=== PATIENT | female | born 1960 | race Caucasian/White ===

== ENCOUNTER 2024-06-05 07:39 | Outpatient (AMB) | payer OTHER, SELFPAY ==
--- OUTSIDE RECORDS SUMMARY | 2024-06-05 07:44 | XMS_ITS | Clinical Summary ---
Author Organization [address] [facility] Address [address] [place] [address] Phone Care Team Providers Care Instrument Specialist Name Role Phone Katalina Parker MD Primary Care Provider [phone] Allergies Active Allergy Reactions Criticality Noted Date Comments Penicillins 11/26/2019 Other Reaction(s): Rash/Dermatitis Medications albuterol 2.5 mg /3 mL (0.083 %) nebulizer solution Take 1 Vial by nebulization every 4 hours as needed for Wheezing or Shortness of Breath. 4 Active amLODIPine (NORVASC) 10 mg tablet Take 1 Tablet by mouth daily. 4 Active aspirin 81 mg EC tablet Take 1 Tablet by mouth daily for 360 days. 4 10/27/19 25 Active atorvastatin (LIPITOR) 20 mg tablet Take 1 Tablet by mouth daily for 360 days. 4 11/22/19 25 Active cholecalciferol (VITAMIN D-3) 25 mcg (1,000 unit) tablet Take 1 Tablet by mouth daily. 4 Active clotrimazole (LOTRIMIN) 1 % cream Apply to skin and toenails daily for 12 weeks 4 Active diclofenac (VOLTAREN) 1 % topical gel Apply 4 g topically 2 times daily. 4 Active DULoxetine (CYMBALTA) [address] capsule Take 1 Capsule by mouth daily. 4 Active fluticasone propion-salmete roL (ADVAIR HFA) 230-21 mcg/actuation inhaler Inhale 2 Puffs into the lungs 2 times daily. 4 Active fluticasone propionate (FLONASE) 50 mcg/actuation nasal spray 2 Sprays by Nasal route daily. 4 Active gabapentin (NEURONTIN) 100 mg capsule Take 1 tablet up to 2 times daily for pain. 4 Active glipiZIDE (GLUCOTROL XL) 5 mg 24 hr tablet Take 1 Tablet by mouth daily. 4 Active cyclobenzaprine (FLEXERIL) 5 mg tablet Take 1 Tablet by mouth 2 times daily as needed for Muscle spasms. 3 Active FREESTYLE LANCETS MISC 1 Each by Does not apply route 2 times daily. 3 Active hydroCHLOROthia zide (HYDRODIURIL) 25 mg tablet Take 1 Tablet by mouth daily. 4 Active losartan (COZAAR) 100 mg tablet Take 1 Tablet by mouth daily for 180 days. 4 Active meclizine (ANTIVERT) 25 mg tablet Take 1 Tablet by mouth 2 times daily as needed for Other. 4 Active metFORMIN XR (GLUCOPHAGE-XR) 500 mg 24 hr tablet Take 1 tablet by mouth twice a day 4 Active montelukast (SINGULAIR) 10 mg tablet Take 1 Tablet by mouth at bedtime. 4 Active naproxen (NAPROSYN) 250 mg tablet Take 1 Tablet by mouth 2 times daily (with meals) for 360 days. 4 10/28/19 25 Active senna-docusate (PERICOLACE) 8.6-50 mg per tablet Take 1 Tablet by mouth daily. 4 Active sodium chloride (AYR) 0.65 % nasal drops 1 [place] by Nasal route 4 times daily as needed for Congestion. 3 Active magnesium oxide (MAG-OX) 400 mg magnesium tablet Take 1 Tablet by mouth daily. 4 Active blood sugar diagnostic (FreeStyle Lite Strips) test strip 1 Strip by In Vitro route 2 times daily. 4 Active blood-glucose meter kit 1 Device by Does not apply route daily. 3 Active Active Problems Problem Noted Date Diagnosed Date Diabetes 02/22/2021 Peripheral arterial disease 07/16/2020 Overview (01/30/2024): Per [facility] results 05/2020: L>R, awaiting appt to discuss and make recommendations Anxiety 06/16/2020 Degenerative disc disease, lumbar 11/28/2019 Osteoarthritis 11/28/2019 Asthma 11/26/2019 Depression with anxiety 11/26/2019 Hypertension 11/26/2019 MELINDA (obstructive sleep apnea) 11/26/2019 Overview (01/30/2024): [facility] Home Sleep Apnea Test: Date 02/26/2020; Wt 238#; BMI 44; CLAUDE (AHI) 59, AI 47; HI 12; Unclassified apneas 0; Obstructive apneas 355; Central apneas 0; Mixed apneas 0; hypopneas 88; average oxygen saturation 94% (lowest 84% without saturations <88% for 5% or more of study) - Obstructive Sleep Apnea - severe; mostly obstructive apneas with hypopneas; without sleep related hypoventilation by 2019 home sleep apnea test. Immunizations Name Administration Dates Next Due Influenza Quadravalent, MDCK , 0.5ml, preservative free (Flucelvax) 6mo and older 11/28/2019 Pfizer SARS-CoV-2 COVID-19, mRNA, LNP-S, preservative free 12/11/2020,11/20/2020 Surgical History Surgery Date Site/Laterality Comments COLONOSCOPY 2019 PROCEDURE: HISTORICAL COLONOSCOPY; COMMENT: nml OTHER SURGICAL HISTORY PROCEDURE: HISTORICAL SUPRACERVICAL HYSTERECTOMY W/O BSO; COMMENT: left oophorectomy Medical History Medical History Date Comments Hypertension 11/26/2019 DX:Hypertension Asthma 11/26/2019 DX:Asthma MELINDA (obstructive sleep apnea) 11/26/2019 DX :MELINDA (obstructive sleep apnea) Depression with anxiety 11/26/2019 DX:Depre ssion with anxiety Family History Medical History Relation Name Comments Other: heart disease Brother Diabetes Father Hypertension Father Other cancer Father bones Alzheimer's disease Mother Hypertension Mother CABG Sister Diabetes Sister Breast cancer Neg Hx Colon cancer Neg Hx Ovarian cancer Neg Hx Relation Name Status Comments Brother Alive Father Mother Sister Alive Social History Tobacco Use Types Packs/Day Years Used Date Smoking Tobacco: Never Smokeless Tobacco: Never Alcohol Use Standard Drinks/Week Comments No 0 (1 standard drink = 0.6 oz pur e alcohol) Comments Unknown Sex and Gender Information Value Date Recorded Sex Assigned at Female 05/30/2024 4:55 PM EST Legal Sex Female 12:18 AM EST Gender Identity Female 05/30/2024 4:55 PM EST Sexual Orientation Straight 05/30/2024 4: 55 PM EST Obstetrics History Last Filed Vital Signs Vital Sign Reading Time Taken Comments Blood Pressure 139/89 11/27/2023 3:40 PM EDT Pulse 72 11/27/2023 3:40 PM EDT Temperature - - Respiratory Rate - - Oxygen Saturation - - Inhaled Oxygen Concentration - - Weight 105 kg (231 lb 6.4 oz) 11/27/2023 3:40 PM EDT Height 157.5 cm (5' 2 ) 11/27/2023 3:40 PM EDT Body Mass Index 42.32 11/27/2023 3:40 PM EDT Plan of Treatment Health Maintenance Due Date Last Done Comments Breast Cancer Screening 1960 Diabetes: Annual Foot Exam 06/16/1969 DTaP,Tdap,and Td Vaccines (1 - Tdap) 06/16/1978 Pneumococcal Vaccine: 50+ Years (1 of 2 - PCV) 06/16/1978 Pneumococcal Vaccine: Pediatrics (0 to 5 Years) and At-Risk Patients (6 to 64 Years) (1 of 2 - PCV) 06/16/1978 Zoster Vaccines (1 of 2) 06/16/2009 RSV Immunization Patients 60 + Years Old (1 - Risk 60-74 years 1-dose series) 2019 HIV Screening 03/04/2022 Hepatitis C Screening 03/04/2022 Medicare Annual Wellness Visit 03/04/2022 Social Influencers of Health Screening 03/04/2022 Diabetes: Annual Urine Albumin-Creatinine Ratio (uACR) 11/01/2023 10/31/2022 COVID-19 Vaccine ( - 2023-2 5 season) 2023 12/11/2020, 11/20/2020 Influenza Vaccine (#1) 2023 11/28/2019 Diabetes: Annual Retina Eye Exam 09/10/2024 09/11/2023 Diabetes: Blood Sugar Contro l Test (HGBA1C) 11/18/2024 05/21/2024, 06/25/2023 Depression Screening 11/26/2024 11/27/2023 Diabetes: Annual GFR (Glomerular Filtration Rate) 05/21/2025 05/21/2024, 06/25/2023 Hypertension/CHF/CAD Annual BMP Blood Test 05/21/2025 05/21/2024, 06/25/2023 Cervical Cancer Screening: HPV 06/21/2025 06/21/2020 Cholesterol Screening (Lipid Panel) 05/21/2029 05/21/2024, 06/25/2023 Colorectal Cancer Screening: Colonoscopy 01/26/2030 01/27/2020 HIB Vaccines Aged Out No longer eligi ble based on patient's age to complete this topic HPV Vaccines Aged Out No longer eligi ble based on patient's age to complete this topic Hepatitis A Vaccines Aged Out No long er eligible based on patient's age to complete this topic Hepatitis B Vaccines Aged Out No long er eligible based on patient's age to complete this topic IPV Vaccines Aged Out No longer eligi ble based on patient's age to complete this topic MMR Vaccines Aged Out No longer eligi ble based on patient's age to complete this topic Meningococcal ACWY Vaccine Aged Out N o longer eligible based on patient's age to complete this topic Meningococcal B Vacine Aged Out No lo nger eligible based on patient's age to complete this topic RSV Immunization Patients Under 20 months Aged Out No longer eligible b ased on patient's age to complete this topic Varicella Vaccines Aged Out No longer eligible based on patient's age to complete this topic Procedures Procedure Name Priority Date/Time Associated Diagnosis Comments COMPREHENSIVE METABOLIC PANEL Routine 05/21/2024 8:49 AM EST Hyperlipemia Essential hypertension, benign HEMOGLOBIN A1C Routine 05/21/2024 8:49 AM EST Hyperlipemia Essential hypertension, benign LIPID PANEL WITH REFLEX TO DIRECT LDL Routine 05/21/2024 8:49 AM EST Hyperlipemia Essential hypertension, benign DEPRESSION SCREENING Routine 11/27/2023 DIABETES EYE EXAM Routine 09/11/2023 URINE ALBUMIN CREATININE RATIO Routine 10/31/2022 HM HPV Routine 06/21/2020 COLONOSCOPY Routine 01/27/2020 from Last 3 Months or Most Recently Relevant to Health Maintenance Results * (ABNORMAL) Lipid panel with reflex to direct LDL (05/21/2024 8:49 AM EST) Cholesterol 207(H) 0 - 200 mg/dL LAB CHEMISTRY METHOD 05/21/2024 10:02 AM EST [facility] Triglycerides 171(H) 0 - 150 mg/dL LAB CHEMISTRY METHOD 05/21/2024 10:02 AM [facility] HDL 41 >=40 mg/dL LAB CHEMISTRY METHOD 05/21/2024 10:02 AM [facility] LDL Calculated 132(H) 0 - 100 mg/dL LAB CHEMISTRY METHOD 05/21/2024 10:02 AM EST [facility] VLDL Cholesterol Gino 34.2 mg/dL LAB CHEMISTRY METHOD 05/21/2024 10:02 AM [facility] Non HDL Chol. (LDL+VLDL) 166(H) <145 mg/dL LAB CHEMISTRY METHOD 05/21/2024 10:02 AM [facility] Chol/HDL Ratio 5.0(H) 0.0 - 4.4 LAB CHEMISTRY METHOD 05/21/2024 10:02 AM EST [facility] Blood Venous blood specimen / Unknown Venipuncture / Unknown 05/21/2024 8:49 AM EST 05/21/2024 9:09 AM EST us Katalina Parker MD LAB BLOOD ORDERABLES Final Res ult [facility] [address] [place] [address], * Hemoglobin A1c (05/21/2024 8:49 AM EST) Pathologist [facility] Hemoglobin A1C 6.0 <6.5 % LAB CHEMISTRY METHOD 05/21/2024 1:34 PM [facility] Mean Bld Glu Estim. 126 mg/dL LAB CHEMISTRY METHOD 05/21/2024 1:34 PM [facility] Blood Venous blood specimen / Unknown Venipuncture / Unknown 05/21/2024 8:49 AM EST 05/21/2024 9:10 AM EST us Katalina Parker MD LAB BLOOD ORDERABLES Final Res ult [facility] [address] [place] [address], [place] [phone] * (ABNORMAL) Comprehensive metabolic panel (05/21/2024 8:49 AM EST) [facility] Sodium 139 133 - 145 mmol/L LAB CHEMISTRY METHOD 05/21/2024 10:02 AM [facility] Potassium 4.9 3.5 - 5.5 mmol/L LAB CHEMISTRY METHOD 05/21/2024 10:02 AM [facility] Chloride 107 96 - 110 mmol/L LAB CHEMISTRY METHOD 05/21/2024 10:02 AM [facility] CO2 25 21 - 32 mmol/L LAB CHEMISTRY METHOD 05/21/2024 10:02 AM [facility] Anion Gap 7 3 - 11 LAB CHEMISTRY METHOD 05/21/2024 10:02 AM [facility] Glucose 102(H) 70 - 100 mg/dL LAB CHEMISTRY METHOD 05/21/2024 10:02 AM [facility] BUN 25 5 - 25 mg/dL LAB CHEMISTRY METHOD 05/21/2024 10:02 AM [facility] Creatinine 0.93 0.50 - 1.10 mg/dL LAB CHEMISTRY METHOD 05/21/2024 10:02 AM [facility] eGFR 69 >=60 mL/min/1. 73m2 LAB CHEMISTRY METHOD 05/21/2024 10:02 AM [facility] Comment:Calculation based on the??Chronic Kidney Disease Epidemiology Collaboration (CKD-EPI) equation refit??without adjustment for race. BUN/Creatinine Ratio 26.9 LAB CHEMISTRY METHOD 05/21/2024 10:02 AM [facility] Calcium 9.8 8.5 - 10.5 mg/dL LAB CHEMISTRY METHOD 05/21/2024 10:02 AM [facility] AST (SGOT) 20 10 - 42 unit/L LAB CHEMISTRY METHOD 05/21/2024 10:02 AM [facility] ALT (SGPT) 22 10 - 60 unit/L LAB CHEMISTRY METHOD 05/21/2024 10:02 AM [facility] Alkaline Phosphatase 116 42 - 121 unit/L LAB CHEMISTRY METHOD 05/21/2024 10:02 AM [facility] Total Protein 7.2 6.0 - 8.0 g/dL LAB CHEMISTRY METHOD 05/21/2024 10:02 AM [facility] Albumin 3.7 3.2 - 5.0 g/dL LAB CHEMISTRY METHOD 05/21/2024 10:02 AM [facility] Total Bilirubin 0.4 0.0 - 1.4 mg/dL LAB CHEMISTRY METHOD 05/21/2024 10:02 AM [facility] Blood Venous blood specimen / Unknown Venipuncture / Unknown 05/21/2024 8:49 AM EST 05/21/2024 9:09 AM EST us Katalina Parker MD LAB BLOOD ORDERABLES Final Res ult [facility] [address] [place] [address], * Depression Screening (11/27/2023) Pathologist [facility] Depression Screening Abstracted [facility] [place] [facility] Provider HEALTH MAINTENANCE Final Result * Diabetes Eye Exam (09/11/2023) [facility] Diabetes: Annual Retina Eye Exam Abstracted Result [facility] Provider HEALTH MAINTENANCE Final Result * Urine Albumin Creatinine Ratio (10/31/2022) [facility] Urine Albumin Creatinine Ratio Abstracted Result [facility] Provider HEALTH MAINTENANCE Final Result * Cervical Cancer Screening: HPV (06/21/2020) [facility] Cervical Cancer Screening: HPV Negative, Abstracted Result [facility] Provider HEALTH MAINTENANCE Final Result * Colonoscopy (01/27/2020) [facility] Colonoscopy No Interpretation , Abstracted Anatomical Region Laterality Modality Other Result [facility] Provider HEALTH MAINTENANCE Final Result from Last 3 Months or Most Recently Relevant to Health Maintenance Insurance [employer] Member Subscriber Plan / Payer (Ef fective 2022-Present) Name:Elke Rivers Relation to Subscriber:Self Name:Elke Rivers Payer ID:[id number] Group ID:[id number] Type:Not on file Address: [facility] [address] [address] Care Teams Instrument Specialist Relationship Specialty Start Date End Date Katalina Parker MD [address] [address] PCP - General Internal Medicine 10/06/20
[2024-06-05 07:46] VITALS: BP 130/80; BMI 45.9
--- NOTE | 2024-06-05 07:46 | A.OFFPC_ITS ---
Vital Signs 06/05/24 07:46 Height 5 ft Weight 235 lb BMI 45.9 BP 130/80 Blood Pressure Location Lt brachial Position Sitting Intake Visit Reasons: New patient Intake Note: New patient establishing care Client Associate Required: Yes Client Associate Language: Electric Refrigerator Servicer Name: Nena Maher MD Information Interpreted: non-clinical & clinical Accompanied by: Son Allergies Penicillins Allergy (Severe, Verified 06/05/24 08:00) rash, eye swelling Medication List - Last Reconciled 06/05/24 by Nena Maher MD amlodipine mg PO DAILY cholecalciferol (vitamin D3) PO DAILY duloxetine mg PO DAILY duloxetine mg PO gabapentin mg PO hydrochlorothiazide mg PO DAILY hydroxyzine HCl mg PO 3XD losartan mg PO DAILY magnesium oxide mg PO DAILY meclizine mg PO metformin ER mg PO Tobacco use date assessed: 06/05/24 Fall risk assessment: No Falls in past year Last assessed Fall Risk: 06/05/24 Dental Screening Dental Screen Date: 06/05/24 Did you have a dental visit in the last 12 months?: No Did you have a dental problem in the last 6 months where you did not have access to dental care?: No Was dental information given to patient?: Patient has dentist HPI HPI Comments History of Present Illness Details The patient is a 63-year-old female presenting with a follow-up for management of Type 2 Diabetes Mellitus and blood pressure monitoring. Her medication regimen includes metformin, with no current use of insulin, signifying oral hypoglycemics for control. She also notes a history of depression, maintained with fluoxetine. She also has anxiety and follows with counseling and psychiatry. Blood pressure well controlled. She complains of occasional vertigo and will be referred to vestibular therapy. No tinnitus. Neuropathy stable with gabapentin. She is morbidly obese with a BMI of 45.9 and will be referred to sales operations consultant. On vitamin-D supplements for her low vitamin- D. The patient uses CPAP therapy for diagnosed obstructive sleep apnea. Clinically, she reports issues with degenerative disc disease and scoliosis, causing notable pain and difficulty walking. Vertigo episodes, associated with positional changes, are reported and partially managed with meclizine. Past surgical history involves a hysterectomy due to substantial bleeding episodes, critically affecting her hemoglobin levels in the past. Her history of cholesterol irregularities and ongoing arthritis is notable. Recent imaging and testing include a mammography and a colonoscopy, the latter is due in 2029. Bone health monitoring points to osteo-related assessment performed over two years ago. These collective conditions highlight the chronicity and complexity of her medical needs. [facility] Surgical History History of hysterectomy Family History Father Multiple myeloma Diabetes mellitus Mother Essential hypertension Alzheimers disease Social History Housing: Apartment Alcohol intake: never Patient Tobacco Use Status: Never used Tobacco e-Cigarette/Vaping Use: Never Used Second Hand Smoke Exposure: No service: No Current occupational status: disabled Cognitive needs: Yes Hearing needs: No Vision needs: Yes Questionnaire PHQ-9 Over the last 2 weeks, how often have you been bothered by any of the following problems? 1. Little interest or pleasure in doing things: several days 2. Feeling down, depressed, or hopeless: several days 3. Trouble falling or staying asleep, or sleeping too much: several days 4. Feeling tired or having little energy: several days 5. Poor appetite or overeating: several days 6. Feeling bad about yourself - or that you are a failure or have let yourself or your family down: not at all 7. Trouble concentrating on things, such as reading the newspaper or watching television: not at all 8. Moving or speaking so slowly that other people could have noticed. Or the opposite - being so fidgety or restless that you have been moving around a lot more than usual: not at all 9. Thoughts that you would be better off or of hurting yourself in some way: not at all Total score: 5 Depression Screening Interpretation: Positive Depression Screening Follow-up: Existing condition, In treatment, Community Mental Health Worker F/U and Follow- up Visit Requested Depression Screening Done: Yes 50925 - PHQ-9 Billing: Yes Source: Developed by Drs. Kirill Sin, Kristyn Hinton, Renzo Jennings and colleagues, with an educational jasvir from [employer] Thrive Questionnaire Date Thrive assessed: 06/05/24 I am a: Patient What is your living situation today?: I have a steady place to live Within the past 12 months, did the food you bought not last and you didn't have the money to get more?: Never true Within the past 12 months, did you worry whether your food would run out before you got money to buy more?: Never true Do you have trouble paying for medicines?: No Do you have trouble getting transportation to medical appointments?: No Do you have trouble paying your heating and electricity bill?: No Do you have trouble taking care of your child, family member or friend?: No Do you have trouble with day-to-day activities such as bathing, preparing meals, shopping, managing finances, etc.?: No Are you currently unemployed and looking for a job?: No Are you interested in more education?: No Please select the resources that you would like help with: None Currently or been in a relationship where the following occur: No concerns rep orted THRIVE Score: 0 AUDIT C Alcohol Use Questionnaire (AUDIT-C) 1. How often do you have a drink containing alcohol?: Never Total Score: 0 Score Reviewed/Action Taken: No JOSHUA-7 AMB Questionnaire JOSHUA-7 Date JOSHUA - 7 assessed: 06/05/24 Feeling nervous, anxious, or on edge: 1 = Several days Not being able to stop or control worryin = Not at all Worrying too much about different things: 1 = Several days Trouble relaxin = Several days Being so restless that it is hard to sit still: 0 = Not at all Becoming easily annoyed or irritable: 0 = Not at all Feeling afraid as if something awful might happen: 0 = Not at all Total JOSHUA-7 score (0-4 normal; 5-9 mild; 10-14 moderate; 15-21 severe): 3 Source: Developed by Drs. Kirill Sin, Kristyn Hinton, Renzo Jennings and colleagues, with an educational jasvir from [employer] Review of Systems Const All systems reviewed & are unremarkable except as noted in HPI and below Card Denies chest pain at rest, Denies chest pain with activity, Denies edema, Denies irregular heart rhythm, Denies claudication, Denies dyspnea, Denies dyspnea on exertion, Denies orthopnea, Denies paroxysmal nocturnal dyspnea and Denies slow heart rate Resp Denies cough, Denies dyspnea and Denies dyspnea on exertion GI Denies abdominal pain, Denies change in bowel habits, Denies excessive flatus, Denies nausea and Denies vomiting Denies urinary incontinence, Denies urinary hesitancy and Denies urinary urgency Musc Denies abnormal gait, Denies atrophy, Denies deformity and Denies limited range of motion Skin/Breast Denies bleeding lesions, Denies changing lesions and Denies rash Neuro Denies abnormal gait, Denies behavioral changes and Denies lack of coordination Psych Reports abnormal sleep pattern, Reports anxiety, Denies behavioral changes and Reports depression Physical exam (Primary Care) Vital Signs: Last Vital Signs BP 130/80 06/05/24 07:46 BMI result Body Mass Index 45.9 BMI Assessment/Plan discussion: High BMI High, discussed plan: lifestyle, weight reduction, dietary and physical activity Tobacco/Smoking Status: Tobacco use Status Tobacco use date assessed 06/05/24 06/05/24 07:57 Patient Tobacco Use Status Never used Tobacco 06/05/24 07:57 e-Cigarette/Vaping Use Never Used 06/05/24 07:57 PHQ-9: PHQ-9 Score PHQ-9: Total score 5 06/05/24 08:10 Depression Screening Interpretation: Positive Depression Screening Follow-up: Existing condition, In treatment, Community Mental Health Worker F/U and Follow- up Visit Requested Thrive Assessment: Date of Thrive Assessment Date Thrive assessed 06/05/24 06/05/24 07:57 Currently or been in a relationship where the following occur: No concerns reported Resp Effort & Inspection: normal respiratory effort Auscultation: clear to auscultation bilaterally Cardio Jugular venous distension: no JVD Rate: regular rate Rhythm: regular rhythm Heart sounds: S1 normal heart sound present and S2 normal heart sound present Extrem General: Yes full ROM Immunizations Boostrix Tdap 2.5 Lf unit-8 mcg-5 Lf/0.5 mL intramuscular syringe Performing Provider: Nena Maher MD [facility] Administered by: XIMENA Vilchis on 06/05/24 08:27 Dose Route Admin Location Dispensed Lot Number Expiration Date [facility] Social Welfare Research Worker 0.5 mL IM Left Deltoid 0.5 mL [id number] 07/12/26 [id number] [employer] VIS Given Date VIS Provided VIS Publication Date 06/05/24 Single Vaccine 20 Eligibility Eligibility Date Funding Source Not [facility] Eligible 06/05/24 Private Coding Level of Care Code New Pt Level 4 (01013) Complex EM visit Add On G2211 Diagnoses Type 2 diabetes mellitus without complication, without long-term current use of insulin E11.9 Diabetes mellitus complication status: without complication Diabetes mellitus detention insulin use: without detention use Diabetes mellitus type: type 2 Essential hypertension I10 Mild major depression F32.0 MELINDA on CPAP G47.33 Hypovitaminosis D E55.9 Neuropathy G62.9 JOSHUA (generalized anxiety disorder) F41.1 Morbid obesity with BMI of 45.0-49.9, adult E66.01; Z68.42 Benign paroxysmal positional vertigo, unspecified laterality H81.10 Laterality: unspecified laterality Additional Codes PHQ-9 - 04744 - PHQ-9 Billing: Yes ([id number]) Time Spent (min) 25 Assessment & Plan Assessment & Plan (1) Diabetes mellitus: Code(s): E11.9 - Type 2 diabetes mellitus without complications Category: Medical Qualifiers: Diabetes mellitus complication status: without complication Diabetes mellitus motor and generator brush maker insulin use: without detention use Diabetes mellitus type: type 2 Qualified Code(s): E11.9 - Type 2 diabetes mellitus without complications (2) Essential hypertension: Code(s): I10 - Essential (primary) hypertension Category: Medical (3) Mild major depression: Code(s): F32.0 - Major depressive disorder, single episode, mild Category: Medical (4) MELINDA on CPAP: Code(s): G47.33 - Obstructive sleep apnea (adult) (pediatric) Category: Medical (5) Hypovitaminosis D: Code(s): E55.9 - Vitamin D deficiency, unspecified Category: Medical (6) Neuropathy: Code(s): G62.9 - Polyneuropathy, unspecified Category: Medical (7) JOSHUA (generalized anxiety disorder): Code(s): F41.1 - Generalized anxiety disorder Category: Medical (8) Morbid obesity with BMI of 45.0-49.9, adult: Code(s): E66.01 - Morbid (severe) obesity due to excess calories; Z68.42 - Body mass index [BMI] 45.0-49.9, adult Category: Medical (9) BPPV (benign paroxysmal positional vertigo): Code(s): H81.10 - Benign paroxysmal vertigo, unspecified ear Category: Medical Qualifiers: Laterality: unspecified laterality Qualified Code(s): H81.10 - Benign paroxysmal vertigo, unspecified ear Plan My management plan includes continued surveillance of her Type 2 Diabetes through oral hypoglycemic agents, specifically metformin. Regular monitoring of blood pressure has been recommended. She will maintain fluoxetine for depression, and vigilant use of CPAP therapy for her obstructive sleep apnea is deemed necessary. A repeat of cholesterol labs will yield more clarity in managing her hyperlipidemia. Furthermore, management of vertigo through vestibular therapy and a follow-up for joint and structural issues is critical. The comprehensive scope evident in her past surgical interventions, such as hysterectomy, underscores the con tinuity needed for her chronic care maintenance. Patient was informed and verbally consented to the use of an ambient scribe for clinic note documentation during this visit. I discussed the importance of ongoing management of her chronic conditions, emphasizing adherence to her prescribed medication regimen and the use of CPAP for her sleep apnea. We addressed the potential benefits of vestibular therapy for vertigo. The pending lab work was acknowledged with an understanding of the need for further evaluation. I advised her on the risks associated with her conditions and reiterated the importance of follow-up testing and procedures, including her cholesterol and bone health assessments. Additionally, I explained the necessity of her past hysterectomy due to earlier severe bleeding and ensured clarity on her penicillin allergy. Orders: Orders XR DEXA axial skeleton Today Z78.0 - Asymptomatic menopausal state MM tomosynthesis screening BI Today Z12.31 - Encounter for screening mammogram for malignant neoplasm of breast Vitamin D 25-OH Total Today E55.9 - Vitamin D deficiency, unspecified Lipid Panel Today E78.5 - Hyperlipidemia, unspecified Microalbumin, Random (w Creat) Today R80.9 - Proteinuria, unspecified Comprehensive [place]. Panel Fast Today E66.01 - Morbid (severe) obesity due to excess calories, Z68.42 - Body mass index [BMI] 45.0-49.9, adult PT Evaluation and Treatment Today H81.10 - Benign paroxysmal vertigo, unspecified ear Referrals Baby Stroller Rental Clerk Nutrition Referral E11.9 - Type 2 diabetes mellitus without complications, E66.01 - Morbid (severe) obesity due to excess calories, Z68.42 - Body mass index [BMI] 45.0-49.9, adult Patient Instructions: - Continue taking metformin as prescribed for diabetes management. - Adhere to fluoxetine for depression treatment. - Use CPAP machine consistently for sleep apnea. - Schedule repeat cholesterol tests and follow up on results. - Consider physical therapy for mobility related to degenerative disc issues. - Attend recommended vestibular therapy sessions for vertigo management. - Plan for routine bone densitometry scans as advised. - Be cautious about penicillin allergy when receiving new medications.
== END 2024-06-05 08:24 | disposition home or self-care (01) ==
PROVIDERS: Visit Provider Internal Medicine
DX: E11.42 Type 2 diabetes mellitus with diabetic polyneuropathy (principal); F32.0 Major depressive disorder, single episode, mild; E66.01 Morbid (severe) obesity due to excess calories; Z68.42 Body mass index [BMI] 45.0-49.9, adult; I10 Essential (primary) hypertension; G47.33 Obstructive sleep apnea (adult) (pediatric); E55.9 Vitamin D deficiency, unspecified; G62.9 Polyneuropathy, unspecified; F41.1 Generalized anxiety disorder; H81.13 Benign paroxysmal vertigo, bilateral; Z23 Encounter for immunization

== ENCOUNTER → 2024-06-05 07:39 | Outpatient (BNVA) | payer OTHER, SELFPAY | PROVIDERS: Visit Provider Internal Medicine | DX: Z23 Encounter for immunization (principal); E11.9 Type 2 diabetes mellitus without complications; F32.0 Major depressive disorder, single episode, mild; E55.9 Vitamin D deficiency, unspecified; G47.33 Obstructive sleep apnea (adult) (pediatric); F41.1 Generalized anxiety disorder; G62.9 Polyneuropathy, unspecified; E66.01 Morbid (severe) obesity due to excess calories; Z68.42 Body mass index [BMI] 45.0-49.9, adult; H81.10 Benign paroxysmal vertigo, unspecified ear; I10 Essential (primary) hypertension; Z71.3 Dietary counseling and surveillance | CPT/HCPCS: 90471; 90715; 96127; 99202 ==

== ENCOUNTER 2024-06-26 09:10 | Outpatient (AMB) | payer OTHER, SELFPAY ==
[2024-06-26 09:13] VITALS: BMI 44.3
--- NOTE | 2024-06-26 09:13 | MHC.AMNUTRGE ---
VS Expanded 06/26/24 09:13 06/26/24 09:22 Height 5 ft 5 ft Weight 227 lb 1.218 oz 227 lb BMI 44.3 44.3 Intake Visit Reasons: Type 2 diabetes mellitus without complications Allergies Penicillins Allergy (Severe, Verified 06/05/24 08:00) rash, eye swelling Nutrition Presentation Details: Pt presents for MNT for T2DM Pt presents with FLOORWORKER LASTING during this appt Pt reports having no meal routine an inc snacks food frequency fruits: 0-1/d ve/wk dairy 1/d fish : 2x/wk starches > 25/d fluids: water , milk, juice pastries> 1/d etoh/smoking: denies physical activity: limited, uses cane, BS Monitoring Most Recent Diabetes Results: No Data to Display YZN-Chtkmyd-Te.Jeor Equation Height: 5 ft Weight: 227 lb Resting Metabolic Rate: 1500.33 Calculated Activity Level: Sedentary Calories Needed to Maintain Weight: 1800.40 Diagnosis Nutrition problem #1: excessive energy intake As related to (etiology) #1: diagnosis As evidenced by (sign/symptom) #1: knowledge deficit of diet PFSH Surgical History History of hysterectomy Family History Father Multiple myeloma Diabetes mellitus Mother Essential hypertension Alzheimers disease Social History Housing: Apartment Alcohol intake: never Patient Tobacco Use Status: Never used Tobacco e-Cigarette/Vaping Use: Never Used Second Hand Smoke Exposure: No service: No Current occupational status: disabled Cognitive needs: Yes Hearing needs: No Vision needs: Yes Assessment & Plan Assessment & Plan (1) Diabetes mellitus: Code(s): E11.9 - Type 2 diabetes mellitus without complications Category: Medical Qualifiers: Diabetes mellitus type: type 2 Diabetes mellitus snf insulin use: without intermediate project manager use Diabetes mellitus complication status: without complication Qualified Code(s): E11.9 - Type 2 diabetes mellitus without complications Plan: Wt: 103 Kg (07/18 ) Est kcal needs as per MSJ: 1800 (40% carb, 30% protein/fat) Est fluid needs as per 25-30 ml/d: 3100 Est prot per day as per 1 g/kg bw: 103 Recommend fiber intake : 8-10 g per day and gradually increase to 25-28 g per day for women and 35-38 g for men or as tolerated Recommend sodium intake per day : less than 2000 mg Educated patient on: ( R = reviewed V = verbalizes understanding N/R = needs review N/A = not applicable Food sources of carbohydrate, adequate serving sizes and its role in various health conditions: R Differences between complex carbohydrates a simple carbohydrates, role of fiber in diet: R Lean protein sources of foods: R Differences between types of fats and role in diet (mono on saturated fat fatty acids, saturated fatty acids, trans fats): R Food sources of sodium in salt and healthy modifications for heart health in kidney health: R Vitamins and minerals: R V N/R Healthy plate method concept: R Physical activity: Benefits a precaution: R Patient Instructions: Have a 3 meal /day routine, reducing on snacks follow healthy plate method (less than 45 g carb per meal) keep hydrated by having water with meals/in between Choose low sodium food choices see meal plan/ideas Coding Level of Care Code Nutr Indiv Intake (56152) Diagnoses Type 2 diabetes mellitus without complication, without long-term current use of insulin E11.9 Diabetes mellitus type: type 2 Diabetes mellitus intermediate project manager insulin use: without intermediate project manager use Diabetes mellitus complication status: without complication Time Spent (min) 30
[2024-06-26 09:22] VITALS: BMI 44.3
--- OUTSIDE RECORDS SUMMARY | 2024-06-26 09:30 | XMS_ITS | Clinical Summary ---
Author Organization 175 [facility] Address [address] [place] [address] Phone Care Team Providers Care Sawmill Tally Clerk Name Role Phone Katalina Parker MD Primary Care Provider [phone] Allergies Active Allergy Reactions Criticality Noted Date [...] chloride (AYR) 0.65 % nasal drops 1 [place] by Nasal route 4 times daily as [...] MELINDA (obstructive sleep apnea) 11/26/2019 Overview (01/30/2024): [facility] Home Sleep Apnea Test: Date [...] Vaccines (1 of 2) 06/16/2009 RSV Immunization Adult Patients (1 - Risk 60-74 years 1-dose series) 2019 Hepatitis C Screening 03/04/2022 Medicare Annual Wellness Visit 03/04/2022 Osteoporosis Screening (Bone Density Screening) 03/04/2022 Social Influencers of Health Screening 03/04/2022 Diabetes: Annual Urine Albumin-Creatinine Ratio (uACR) 11/01/2023 10/31/2022 COVID-19 Vaccine ( - 2023-2 5 season) 2023 12/11/2020, 11/20/2020 Influenza Vaccine (#1) 2023 11/28/2019 Falls Risk Assessment 06/16/2024 Diabetes: Annual Retina Eye Exam 09/10/2024 09/11/2023 [...] 09/11/2023 URINE ALBUMIN CREATININE RATIO Routine 10/31/2022 HPV Routine 06/21/2020 COLONOSCOPY Routine 01/27/2020 from Last 3 Months or Most Recently Relevant to Health Maintenance Results * (ABNORMAL) Lipid panel with reflex to direct LDL (05/21/2024 8:49 AM EST) Cholesterol 207(H) 0 - 200 mg/dL LAB CHEMISTRY METHOD 05/21/2024 10:02 AM EST [facility] Triglycerides 171(H) 0 - 150 mg/dL LAB CHEMISTRY METHOD 05/21/2024 10:02 AM [facility] HDL 41 >=40 mg/dL LAB CHEMISTRY METHOD 05/21/2024 10:02 AM [facility] LDL Calculated 132(H) 0 - 100 mg/dL LAB CHEMISTRY METHOD 05/21/2024 10:02 AM EST [facility] VLDL Cholesterol Gino 34.2 mg/dL LAB CHEMISTRY METHOD 05/21/2024 10:02 AM [facility] Non HDL Chol. (LDL+VLDL) 166(H) <145 mg/dL LAB CHEMISTRY METHOD 05/21/2024 10:02 AM [facility] Chol/HDL Ratio 5.0(H) 0.0 - 4.4 LAB CHEMISTRY METHOD 05/21/2024 10:02 AM [facility] Blood Venous blood specimen / Unknown Venipuncture / Unknown 05/21/2024 8:49 AM EST 05/21/2024 9:09 AM EST us Katalina Parker MD LAB BLOOD ORDERABLES Final Res ult [facility] [address] [place] [address], * Hemoglobin A1c (05/21/2024 8:49 AM EST) [facility] Hemoglobin A1C 6.0 <6.5 % LAB CHEMISTRY METHOD 05/21/2024 1:34 PM [facility] Mean Bld Glu Estim. 126 mg/dL LAB CHEMISTRY METHOD 05/21/2024 1:34 PM [facility] Blood Venous blood specimen / Unknown Venipuncture / Unknown 05/21/2024 8:49 AM EST 05/21/2024 9:10 AM EST us Katalina Parker MD LAB BLOOD ORDERABLES Final Res ult [facility] [address] [place] [address], [place] [phone] * (ABNORMAL) Comprehensive metabolic panel (05/21/2024 8:49 AM EST) [facility] Sodium 139 133 - 145 mmol/L LAB CHEMISTRY METHOD 05/21/2024 10:02 AM [facility] Potassium 4.9 3.5 - 5.5 mmol/L LAB CHEMISTRY METHOD 05/21/2024 10:02 AM [facility] Chloride 107 96 - 110 mmol/L LAB CHEMISTRY METHOD 05/21/2024 10:02 AM [facility] CO2 25 21 - 32 mmol/L LAB CHEMISTRY METHOD 05/21/2024 10:02 AM [facility] Anion Gap 7 3 - 11 LAB CHEMISTRY METHOD 05/21/2024 10:02 AM [facility] Glucose 102(H) 70 - 100 mg/dL LAB CHEMISTRY METHOD 05/21/2024 10:02 AM [facility] BUN 25 5 - 25 mg/dL LAB CHEMISTRY METHOD 05/21/2024 10:02 AM [facility] Creatinine 0.93 0.50 - 1.10 mg/dL LAB CHEMISTRY METHOD 05/21/2024 10:02 AM [facility] eGFR 69 >=60 mL/min/1. 73m2 LAB CHEMISTRY METHOD 05/21/2024 10:02 AM [facility] Comment:Calculation based on the??Chronic Kidney Disease Epidemiology Collaboration (CKD-EPI) equation refit??without adjustment for race. BUN/Creatinine Ratio 26.9 LAB CHEMISTRY METHOD 05/21/2024 10:02 AM [facility] Calcium 9.8 8.5 - 10.5 mg/dL LAB CHEMISTRY METHOD 05/21/2024 10:02 AM [facility] AST (SGOT) 20 10 - 42 unit/L LAB CHEMISTRY METHOD 05/21/2024 10:02 AM [facility] ALT (SGPT) 22 10 - 60 unit/L LAB CHEMISTRY METHOD 05/21/2024 10:02 AM [facility] Alkaline Phosphatase 116 42 - 121 unit/L LAB CHEMISTRY METHOD 05/21/2024 10:02 AM [facility] Total Protein 7.2 6.0 - 8.0 g/dL LAB CHEMISTRY METHOD 05/21/2024 10:02 AM [facility] Albumin 3.7 3.2 - 5.0 g/dL LAB CHEMISTRY METHOD 05/21/2024 10:02 AM [facility] Total Bilirubin 0.4 0.0 - 1.4 mg/dL LAB CHEMISTRY METHOD 05/21/2024 10:02 AM [facility] Blood Venous blood specimen / Unknown Venipuncture / Unknown 05/21/2024 8:49 AM EST 05/21/2024 9:09 AM EST us Katalina Parker MD LAB BLOOD ORDERABLES Final Res ult [facility] [address] [place] [address], * Depression Screening (11/27/2023) Pathologist Counts include 234 beds at the [facility] Depression Screening Abstracted [facility] Provider HEALTH MAINTENANCE Final Result * Diabetes Eye Exam (09/11/2023) [facility] Diabetes: Annual Retina Eye Exam Abstracted [facility] Provider HEALTH MAINTENANCE Final Result * Urine Albumin Creatinine Ratio (10/31/2022) [facility] Urine Albumin Creatinine Ratio Abstracted [facility] Provider HEALTH MAINTENANCE Final Result * Cervical Cancer Screening: HPV (06/21/2020) [facility] Cervical Cancer Screening: HPV Negative, Abstracted Result [facility] Provider HEALTH MAINTENANCE Final Result * Colonoscopy (01/27/2020) [facility] Colonoscopy No Interpretation , Abstracted Anatomical Region Laterality Modality Other Result [facility] Provider HEALTH MAINTENANCE Final Result from Last 3 Months or Most Recently Relevant to Health Maintenance Insurance [employer] Member Subscriber Plan / Payer (Ef fective 2022-Present) Name:Elke Rivers Relation to Subscriber:Self Name:Elke Rivers Payer ID:[id number] Group ID:[id number] Type:Not on file Address: [place] [address] [place] [phone] Care Teams Sawmill Tally Clerk Relationship Specialty Start Date End Date Katalina Parker MD [address] [place] [phone] PCP - General Internal Medicine 10/06/20
== END 2024-06-26 10:07 | disposition home or self-care (01) ==
LOC: HO.ENCR 09:11
PROVIDERS: Visit Provider Dietitian, Registered
DX: E11.9 Type 2 diabetes mellitus without complications (principal)

== ENCOUNTER → 2024-06-26 09:10 | Outpatient (BNVA) | payer OTHER, SELFPAY | PROVIDERS: Visit Provider Dietitian, Registered | DX: E11.9 Type 2 diabetes mellitus without complications (principal); Z71.3 Dietary counseling and surveillance | CPT/HCPCS: 97802 ==

== ENCOUNTER 2024-07-24 08:35 | Outpatient (AMB) | payer OTHER, SELFPAY ==
--- NOTE | 2024-07-24 08:42 | MHC.AMNUTRGE ---
VS Expanded 07/24/24 08:43 Height 5 ft Weight 229 lb 15.074 oz BMI 44.9 Intake Visit Reasons: T2DM Allergies Penicillins Allergy (Severe, Verified 06/05/24 08:00) rash, eye swelling Nutrition Presentation Details: Pt presents for MNT f/u T2DM Pt reports having made no dietary modifications BS Monitoring Most Recent Diabetes Results: No Data to Display UHY-Uywyvnh-Fe.Mukund Equation Height: 5 ft Weight: 230 lb Resting Metabolic Rate: 1513.92 Calculated Activity Level: Sedentary Calories Needed to Maintain Weight: 1816.70 PFSH Surgical History History of hysterectomy Family History Father Multiple myeloma Diabetes mellitus Mother Essential hypertension Alzheimers disease Social History Housing: Apartment Alcohol intake: never Patient Tobacco Use Status: Never used Tobacco e-Cigarette/Vaping Use: Never Used Second Hand Smoke Exposure: No service: No Current occupational status: disabled Cognitive needs: Yes Hearing needs: No Vision needs: Yes Assessment & Plan Assessment & Plan (1) Diabetes mellitus: Code(s): E11.9 - Type 2 diabetes mellitus without complications Category: Medical Qualifiers: Diabetes mellitus type: type 2 Diabetes mellitus long term care social worker insulin use: without long term care social worker use Diabetes mellitus complication status: without complication Qualified Code(s): E11.9 - Type 2 diabetes mellitus without complications Plan: Wt: 103 Kg (07/18 ),104 kg (08/17) Est kcal needs as per MSJ: 1800 (40% carb, 30% protein/fat) Est fluid needs as per 25-30 ml/d: 3100 Est prot per day as per 1 g/kg bw: 103 Recommend fiber intake : 8-10 g per day and gradually increase to 25-28 g per day for women and 35-38 g for men or as tolerated Recommend sodium intake per day : less than 2000 mg Educated patient on: ( R = reviewed V = verbalizes understanding N/R = needs review N/A = not applicable Food sources of carbohydrate, adequate serving sizes and its role in various health conditions: R Differences between complex carbohydrates a simple carbohydrates, role of fiber in diet: R Lean protein sources of foods: R Differences between types of fats and role in diet (mono on saturated fat fatty acids, saturated fatty acids, trans fats): R Food sources of sodium in salt and healthy modifications for heart health in kidney health: R Vitamins and minerals: R V N/R Healthy plate method concept: R Physical activity: Benefits a precaution: R Patient Instructions: work on meal planning Have a routine of choosing a sandwich with vegetables and lean protein as your lunch - see sand recipes/ ideas Follow healthy plate method at dinner Read food labels (pay attention to serving size/carbs/fiber for now) goal 45 g carb as a meal , 0-15 g carb as snack if needed Coding Level of Care Code Nutr Indiv Subseq (13957) Diagnoses Type 2 diabetes mellitus without complication, without long-term current use of insulin E11.9 Diabetes mellitus type: type 2 Diabetes mellitus retirement insulin use: without long term care social worker use Diabetes mellitus complication status: without complication Time Spent (min) 30
[2024-07-24 08:43] VITALS: BMI 44.9
--- OUTSIDE RECORDS SUMMARY | 2024-07-24 08:51 | XMS_ITS | Clinical Summary ---
Author Organization 175 [facility] Address [address] [place] [address] Phone Care Team Providers Care Technical Lead Name Role Phone Katalina Parker MD Primary Care Provider [phone] Allergies Active Allergy Reactions Criticality Noted Date [...] chloride (AYR) 0.65 % nasal drops 1 [place] by Nasal route 4 times daily as [...] Problems Problem Noted Date Diagnosed Date Diabetes ([facility] V24, [facility] V28) 02/22/2021 Peripheral arterial disease ([facility] V24) 2020 Overview (01/30/2024): Per [employer] results 05/2020: L>R, awaiting appt to discuss and make recommendations Anxiety 06/16/2020 Degenerative disc disease, lumbar 11/28/2019 Osteoarthritis 11/28/2019 Asthma 11/26/2019 Depression with anxiety 11/26/2019 Hypertension 11/26/2019 MELINDA (obstructive sleep apnea) 11/26/2019 Overview (01/30/2024): [facility] Home Sleep Apnea Test: Date 02/26/2020; Wt [...] - 2023-2 5 season) 2023 12/11/2020, 11/20/2020 Falls Risk Assessment 06/16/2024 Diabetes: Annual Retina Eye Exam 09/10/2024 09/11/2023 Diabetes: Blood Sugar Contro l Test (HGBA1C) 11/18/2024 05/21/2024, 06/25/2023 Influenza Vaccine (Season Ended) 2024 11/28/2019 Depression Screening 11/26/2024 11/27/2023 Diabetes: Annual GFR [...] age to complete this topic Meningococcal B Vaccine Aged Out No l onger eligible based on patient's age to complete [...] LAB CHEMISTRY METHOD 05/21/2024 10:02 AM EST [facility] Triglycerides 171(H) 0 - 150 mg/dL LAB CHEMISTRY METHOD 05/21/2024 10:02 AM EST [facility] HDL 41 >=40 mg/dL LAB CHEMISTRY METHOD 05/21/2024 10:02 AM EST [facility] LDL Calculated 132(H) 0 - 100 mg/dL LAB CHEMISTRY METHOD 05/21/2024 10:02 AM EST [facility] VLDL Cholesterol Gino 34.2 mg/dL LAB CHEMISTRY METHOD 05/21/2024 10:02 AM EST [facility] Non HDL Chol. (LDL+VLDL) 166(H) <145 mg/dL LAB CHEMISTRY METHOD 05/21/2024 10:02 AM EST [facility] Chol/HDL Ratio 5.0(H) 0.0 - 4.4 LAB CHEMISTRY METHOD 05/21/2024 10:02 AM EST [facility] Blood Venous blood specimen / Unknown Venipuncture / Unknown 05/21/2024 8:49 AM EST 05/21/2024 9:09 AM EST us Katalina Parker MD LAB BLOOD ORDERABLES Final Res ult [facility] [address] [place] [address], [place] [phone] * Hemoglobin A1c (05/21/2024 8:49 AM EST) Pathologist [facility] Hemoglobin A1C 6.0 <6.5 % LAB CHEMISTRY METHOD 05/21/2024 1:34 PM [facility] Mean Bld Glu Estim. 126 mg/dL LAB CHEMISTRY METHOD 05/21/2024 1:34 PM [facility] Blood Venous blood specimen / Unknown Venipuncture / Unknown 05/21/2024 8:49 AM EST 05/21/2024 9:10 AM EST us Katalina Parker MD LAB BLOOD ORDERABLES Final Res ult [facility] [address] [place] [address], * (ABNORMAL) Comprehensive metabolic panel (05/21/2024 8:49 AM EST) [facility] Sodium 139 133 - 145 mmol/L LAB CHEMISTRY METHOD 05/21/2024 10:02 AM [facility] Potassium 4.9 3.5 - 5.5 mmol/L LAB CHEMISTRY METHOD 05/21/2024 10:02 AM [facility] Chloride 107 96 - 110 mmol/L LAB CHEMISTRY METHOD 05/21/2024 10:02 AM [facility] CO2 25 21 - 32 mmol/L LAB CHEMISTRY METHOD 05/21/2024 10:02 AM [facility] Anion Gap 7 3 - 11 LAB CHEMISTRY METHOD 05/21/2024 10:02 AM [facility] Glucose 102(H) 70 - 100 mg/dL LAB CHEMISTRY METHOD 05/21/2024 10:02 AM [facility] BUN 25 5 - 25 mg/dL LAB CHEMISTRY METHOD 05/21/2024 10:02 AM [facility] Creatinine 0.93 0.50 - 1.10 mg/dL LAB CHEMISTRY METHOD 05/21/2024 10:02 AM [facility] eGFR 69 >=60 mL/min/1. 73m2 LAB CHEMISTRY METHOD 05/21/2024 10:02 AM [facility] Comment:Calculation based on the??Chronic Kidney Disease Epidemiology Collaboration (CKD-EPI) equation refit??without adjustment for race. BUN/Creatinine Ratio 26.9 LAB CHEMISTRY METHOD 05/21/2024 10:02 AM [facility] Calcium 9.8 8.5 - 10.5 mg/dL LAB CHEMISTRY METHOD 05/21/2024 10:02 AM [facility] AST (SGOT) 20 10 - 42 unit/L LAB CHEMISTRY METHOD 05/21/2024 10:02 AM [facility] ALT (SGPT) 22 10 - 60 unit/L LAB CHEMISTRY METHOD 05/21/2024 10:02 AM [facility] Alkaline Phosphatase 116 42 - 121 unit/L LAB CHEMISTRY METHOD 05/21/2024 10:02 AM [facility] Total Protein 7.2 6.0 - 8.0 g/dL LAB CHEMISTRY METHOD 05/21/2024 10:02 AM [facility] Albumin 3.7 3.2 - 5.0 g/dL LAB CHEMISTRY METHOD 05/21/2024 10:02 AM [facility] Total Bilirubin 0.4 0.0 - 1.4 mg/dL LAB CHEMISTRY METHOD 05/21/2024 10:02 AM [facility] Blood Venous blood specimen / Unknown Venipuncture / Unknown 05/21/2024 8:49 AM EST 05/21/2024 9:09 AM EST us Katalina Parker MD LAB BLOOD ORDERABLES Final Res ult [facility] [address] [place] [address], * Depression Screening (11/27/2023) [facility] Depression Screening Abstracted [facility] Provider HEALTH MAINTENANCE Final Result * Diabetes Eye Exam (09/11/2023) [facility] Diabetes: Annual Retina Eye Exam Abstracted Result [facility] Provider HEALTH MAINTENANCE Final Result * Urine Albumin Creatinine Ratio (10/31/2022) [facility] Urine Albumin Creatinine Ratio Abstracted [facility] Provider HEALTH MAINTENANCE Final Result * Cervical Cancer Screening: HPV (06/21/2020) [facility] Cervical Cancer Screening: HPV Negative, Abstracted [facility] Provider HEALTH MAINTENANCE Final Result * Colonoscopy (01/27/2020) [facility] Colonoscopy No Interpretation , Abstracted Anatomical Region Laterality Modality Other [facility] Provider HEALTH MAINTENANCE Final Result from Last 3 Months or Most Recently Relevant to Health Maintenance Insurance [employer] Member Subscriber Plan / Payer (Ef fective 2022-Present) Name:Elke Rivers Relation to Subscriber:Self Name:Elke Rivers Payer ID:[id number] Group ID:[id number] Type:Not on file Address: [place] [facility] [place] [address] Care Teams Technical Lead Relationship Specialty Start Date End Date Katalina Parker MD [address] [facility] [address] [place] [phone] PCP - General Internal Medicine 10/06/20
[2024-07-24 10:43] VITALS: BMI 44.9
== END 2024-07-24 09:15 | disposition home or self-care (01) ==
LOC: HO.ENCR 08:36
PROVIDERS: Visit Provider Dietitian, Registered
DX: E11.9 Type 2 diabetes mellitus without complications (principal)

== ENCOUNTER → 2024-07-24 08:35 | Outpatient (BNVA) | payer OTHER, SELFPAY | PROVIDERS: Visit Provider Dietitian, Registered | DX: E11.9 Type 2 diabetes mellitus without complications (principal) | CPT/HCPCS: 97803 ==

== ENCOUNTER 2024-08-14 10:39 | Outpatient (REF) | payer OTHER, SELFPAY ==
--- NOTE | ~2024-08-14 | MM_ITS ---
EXAMINATION: DXA BONE DENSITY AXIAL HISTORY: Z78.0 - Asymptomatic menopausal state TECHNIQUE: Jumpzter Dual energy absorptiometry (DEXA) of the lumbar spine, total left hip, and femoral neck was performed. COMPARISON: There are no prior studies for comparison. FINDINGS: The bone mineral density of the lumbar spine is 1.334, corresponding to a T-score of 1.2, and a Z-score of 1.6. This is indicative of normal bone mineral density. The bone mineral density of the left total hip is 0.930, corresponding to a T-score of -0.6, and a Z-score of -0.3. This is indicative of normal bone mineral density. The bone mineral density of the left femoral neck is 0.754, corresponding to a T-score of -2.0, and a Z-score of -1.3. This is indicative of osteopenia. FRACTURE RISK: The FRAX index suggests a risk of major osteoporotic fracture of 5.2%, and of hip fracture 0.7%. MM/XR DEXA axial skeleton IMPRESSION: Based on bone mineral density, and according to World Health Organization (WHO) criteria, the diagnosis is consistent with osteopenia. All bone density values are in grams per centimeter squared (g/cm2). Statistically, 68% of repeat scans fall within 1 SD (+/- 0.010 g/cm2 for AP spine L1-L4) and 1 SD (+/- 0.012 g/cm2 for femur total) FRAX is a trademark of the [employer]'s [place] for Metabolic Bone Disease, a World Health Organization (WHO) Collaborating Center. Electronically signed by: Kirill Byrd MD 08/14/2024 12:21 PM EDT
--- OUTSIDE RECORDS SUMMARY | 2024-08-14 11:15 | XMS_ITS | Clinical Summary ---
Author Organization 175 [facility] Address [address] [place] [address] Phone Care Team Providers Care Historic Sites Registrar Name Role Phone Katalina Parker MD Primary Care Provider [phone] Allergies Active Allergy Reactions Criticality Noted Date [...] chloride (AYR) 0.65 % nasal drops 1 [place] by Nasal route 4 times daily as [...] Problems Problem Noted Date Diagnosed Date Diabetes ([facility] V24, [facility] V28) 02/22/2021 Peripheral arterial disease ([facility] V24) 2020 Overview (01/30/2024): Per QuantFlo results 05/2020: L>R, awaiting appt to discuss and make recommendations Anxiety 06/16/2020 Degenerative disc disease, lumbar 11/28/2019 Osteoarthritis 11/28/2019 Asthma 11/26/2019 Depression with anxiety 11/26/2019 Hypertension 11/26/2019 MELINDA (obstructive sleep apnea) 11/26/2019 Overview (01/30/2024): [facility] Home Sleep Apnea Test: Date 02/26/2020; [...] LAB CHEMISTRY METHOD 05/21/2024 10:02 AM EST [facility] Triglycerides 171(H) 0 - 150 mg/dL LAB CHEMISTRY METHOD 05/21/2024 10:02 AM EST [facility] HDL 41 >=40 mg/dL LAB CHEMISTRY METHOD 05/21/2024 10:02 AM EST [facility] LDL Calculated 132(H) 0 - 100 mg/dL LAB CHEMISTRY METHOD 05/21/2024 10:02 AM EST [facility] VLDL Cholesterol Gino 34.2 mg/dL LAB CHEMISTRY METHOD 05/21/2024 10:02 AM EST [facility] Non HDL Chol. (LDL+VLDL) 166(H) <145 mg/dL LAB CHEMISTRY METHOD 05/21/2024 10:02 AM EST [facility] Chol/HDL Ratio 5.0(H) 0.0 - 4.4 LAB CHEMISTRY METHOD 05/21/2024 10:02 AM EST [facility] Blood Venous blood specimen / Unknown Venipuncture / Unknown 05/21/2024 8:49 AM EST 05/21/2024 9:09 AM EST us Katalina Parker MD LAB BLOOD ORDERABLES Final Res ult [facility] [address] [place] [address], [place] [phone] * Hemoglobin A1c (05/21/2024 8:49 AM EST) Pathologist [facility] Hemoglobin A1C 6.0 <6.5 % LAB CHEMISTRY METHOD 05/21/2024 1:34 PM [facility] Mean Bld Glu Estim. 126 mg/dL LAB CHEMISTRY METHOD 05/21/2024 1:34 PM [facility] Blood Venous blood specimen / Unknown Venipuncture / Unknown 05/21/2024 8:49 AM EST 05/21/2024 9:10 AM EST us Katalina Parker MD LAB BLOOD ORDERABLES Final Res ult [facility] [address] [place] [address], * (ABNORMAL) Comprehensive metabolic panel (05/21/2024 8:49 AM EST) [facility] Sodium 139 133 - 145 mmol/L LAB CHEMISTRY METHOD 05/21/2024 10:02 AM [facility] Potassium 4.9 3.5 - 5.5 mmol/L LAB CHEMISTRY METHOD 05/21/2024 10:02 AM [facility] Chloride 107 96 - 110 mmol/L LAB CHEMISTRY METHOD 05/21/2024 10:02 AM [facility] CO2 25 21 - 32 mmol/L LAB CHEMISTRY METHOD 05/21/2024 10:02 AM [facility] Anion Gap 7 3 - 11 LAB CHEMISTRY METHOD 05/21/2024 10:02 AM [facility] Glucose 102(H) 70 - 100 mg/dL LAB CHEMISTRY METHOD 05/21/2024 10:02 AM [facility] BUN 25 5 - 25 mg/dL LAB CHEMISTRY METHOD 05/21/2024 10:02 AM [facility] Creatinine 0.93 0.50 - 1.10 mg/dL LAB CHEMISTRY METHOD 05/21/2024 10:02 AM [facility] eGFR 69 >=60 mL/min/1. 73m2 LAB CHEMISTRY METHOD 05/21/2024 10:02 AM [facility] Comment:Calculation based on the??Chronic Kidney Disease Epidemiology Collaboration (CKD-EPI) equation refit??without adjustment for race. BUN/Creatinine Ratio 26.9 LAB CHEMISTRY METHOD 05/21/2024 10:02 AM [facility] Calcium 9.8 8.5 - 10.5 mg/dL LAB CHEMISTRY METHOD 05/21/2024 10:02 AM [facility] AST (SGOT) 20 10 - 42 unit/L LAB CHEMISTRY METHOD 05/21/2024 10:02 AM [facility] ALT (SGPT) 22 10 - 60 unit/L LAB CHEMISTRY METHOD 05/21/2024 10:02 AM [facility] Alkaline Phosphatase 116 42 - 121 unit/L LAB CHEMISTRY METHOD 05/21/2024 10:02 AM [facility] Total Protein 7.2 6.0 - 8.0 g/dL LAB CHEMISTRY METHOD 05/21/2024 10:02 AM [facility] Albumin 3.7 3.2 - 5.0 g/dL LAB CHEMISTRY METHOD 05/21/2024 10:02 AM [facility] Total Bilirubin 0.4 0.0 - 1.4 mg/dL LAB CHEMISTRY METHOD 05/21/2024 10:02 AM [facility] Blood Venous blood specimen / Unknown Venipuncture / Unknown 05/21/2024 8:49 AM EST 05/21/2024 9:09 AM EST us Katalina Parker MD LAB BLOOD ORDERABLES Final Res ult [facility] [address] [place] [address], * Depression Screening (11/27/2023) [facility] Depression Screening Abstracted [facility] Provider HEALTH MAINTENANCE Final Result * Diabetes Eye Exam (09/11/2023) [facility] Diabetes: Annual Retina Eye Exam Abstracted Result [facility] Provider HEALTH MAINTENANCE Final Result * Urine Albumin Creatinine Ratio (10/31/2022) [facility] Urine Albumin Creatinine Ratio Abstracted [facility] Provider HEALTH MAINTENANCE Final Result * Cervical Cancer Screening: HPV (06/21/2020) [facility] Cervical Cancer Screening: HPV Negative, Abstracted [facility] Provider HEALTH MAINTENANCE Final Result * Colonoscopy (01/27/2020) [facility] Colonoscopy No Interpretation , Abstracted Anatomical Region Laterality Modality Other [facility] Provider HEALTH MAINTENANCE Final Result from Last 3 Months or Most Recently Relevant to Health Maintenance Insurance [facility] MEDICARE Member Subscriber Plan / Payer (Ef fective 2022-Present) Name:Elke Rivers Relation to Subscriber:Self Name:Elke Rivers Payer ID:[id number] Group ID:[id number] Type:Not on file Address: [place] [facility] [place] [address] Care Teams Historic Sites Registrar Relationship Specialty Start Date End Date Katalina Parker MD 175 [facility] [address] [place] [address] PCP - General Internal Medicine 10/06/20
== END 2024-08-14 10:40 | disposition home or self-care (01) ==
LOC: HO.MAMMO 10:39
PROVIDERS: PCP Internal Medicine; Visit Provider Internal Medicine
DX: Z13.820 Encounter for screening for osteoporosis (principal); Z78.0 Asymptomatic menopausal state
CPT/HCPCS: 77080

== ENCOUNTER → 2024-08-14 11:00 | Outpatient (BNV) | payer OTHER, SELFPAY | PROVIDERS: PCP Internal Medicine; Visit Provider Radiology Diagnostic Radiology | DX: E28.39 Other primary ovarian failure (principal) | CPT/HCPCS: 77080 ==

== ENCOUNTER 2024-09-05 09:08 | Outpatient (RCR) | payer OTHER, SELFPAY ==
[2024-08-05 09:04] VITALS: BP 143/79; PULSE 77
--- NOTE | 2024-08-05 09:56 | MHC.PT.EP ---
[facility] [place] Office [place] Office [place] Office [address] [phone] F: [phone] F: [phone] F: [phone] F: [phone] Physical Therapy Plan of Care Date of Evaluation: 08/05/24 Date of Surgery: NA Diagnosis: BPPV Assessment: Elke is a 64 year old female who is referred to PT for BPPV . She reports of having h/o BPPV for over 8 years with the worst episode being about 6 years back. She still reports of having dizziness however it lasts only for 1-2 seconds and is present with sit to supine and rolling in bed. She describes it as room spinning and has no nausea or vomiting. On PT examination she presented with intact smooth pursuit, intact saccades, intact visual tracking, negative VBI, negative DVA and negative for BPPV in B soto pikes and B roll test. She however reports of having neck pain and presented with TTP over B UT and reduced neck mobility. Balance not assessed today. She lives with her son and needs assistance for ADLS due to dizziness. She would benefit from skilled PT to address the aforementioned impairments and improve tolerance to functional activities. Frequency and Duration: The patient will be seen 2/week for 4 weeks Short Term Goals: 1. Pt will present with 50% decrease in neck pain in 2 weeks 2. Pt will be able to move cervical spine through functional ROM without pain in 3 weeks Snf Goals: 1. Patient to be educated on symptoms and indications to return to therapy when needed min 4 weeks. 2. Pt will be negative for nystagmus or reports of vertigo in all diagnostic positions bilaterally to resolution of BPPV in 4 weeks. 3. Patient to be able to functionally move in all planes and directions without provocation of dizziness to show return to PLOF in 4 weeks. Treatment Plan: Modalities to reduce pain, spasms and effusion. Manual therapy to restore motion and function. Therapeutic exercise to improve strength and flexibility. Neuromuscular re-education for posture and balance. Therapeutic activities to return to functional activities of daily living. Electronically signed by: Caroline Gamble PT DPT Please sign and return to therapist. Thank you for your referral.
--- NOTE | 2024-10-14 13:16 | MHC.PT.DC ---
[facility] [place] [address] Julio Strange [address] [phone] F: [phone] F: [phone] F: [phone] F: [phone] Physical Therapy Discharge Report Diagnosis: BPPV Date of Surgery: NA Date of Evaluation: 08/05/24 Date of Discharge: 10/14/24 Treatments to Date: 8 Cancellations to Date: 0 No Shows to Date: 0 Discharge Status: Improved Function Independent with HEP Discharge Summary: Elke attended 8 PT visits and made significant improvements with PT. She was independent with all her HEP. She has had no symptoms of dizziness in over a month. She is therefore being d/c from PT. Electronically signed by: Caroline Gamble, PT DPT Please sign and return to therapist. Thank you for your referral.
== END 2024-10-14 13:17 | disposition home or self-care (01) ==
LOC: HO.PT 09:08
PROVIDERS: PCP Internal Medicine; Visit Provider Internal Medicine
DX: H81.10 Benign paroxysmal vertigo, unspecified ear (principal)
CPT/HCPCS: 95992; 97110; 97112; 97140; 97161

== ENCOUNTER 2024-10-14 08:47 | Outpatient (REF) | payer OTHER, SELFPAY ==
--- OUTSIDE RECORDS SUMMARY | 2024-10-14 09:07 | XMS_ITS | Clinical Summary ---
Author Organization 175 [facility] Address [address] [place] [address] Phone Care Team Providers Care Safety Teacher Name Role Phone Katalina Parker MD Primary Care Provider [phone] Allergies Active Allergy Reactions Criticality Noted Date [...] chloride (AYR) 0.65 % nasal drops 1 [place] by Nasal route 4 times daily as [...] Problems Problem Noted Date Diagnosed Date Diabetes ([facility] V24, [facility] V28) 02/22/2021 Peripheral arterial disease ([facility] V24) 2020 Overview (01/30/2024): Per QuantFlo results 05/2020: L>R, awaiting appt to discuss and make recommendations Anxiety 06/16/2020 Degenerative disc disease, lumbar 11/28/2019 Osteoarthritis 11/28/2019 Asthma 11/26/2019 Depression with anxiety 11/26/2019 Hypertension 11/26/2019 MELINDA (obstructive sleep apnea) 11/26/2019 Overview (01/30/2024): [facility] Home Sleep Apnea Test: Date 02/26/2020; [...] Years (1 of 2 - PCV) 06/16/1978 Zoster Vaccines (1 of 2) 06/16/2009 RSV Immunization Adult Patients (1 - Risk 60-74 years 1-dose series) 2019 Hepatitis C Screening 03/04/2022 Medicare Annual Wellness Visit 03/04/2022 Osteoporosis Screening (Bone Density Screening) 03/04/2022 Social Influencers of Health Screening 03/04/2022 Diabetes: Annual Urine Albumin-Creatinine Ratio (uACR) 11/01/2023 10/31/2022 COVID-19 Vaccine (3 - 2023-2 5 season) 2023 12/11/2020, 11/20/2020 Depression Screening 03/26/2024 11/27/2023 Falls Risk Assessment 06/16/2024 Diabetes: Annual Retina Eye Exam 09/10/2024 09/11/2023 Diabetes: Blood Sugar Contro l Test (HGBA1C) 11/18/2024 05/21/2024, 06/25/2023 Influenza Vaccine (#1) 2024 11/28/2019 Diabetes: Annual GFR (Glomerular Filtration Rate) 05/21/2025 [...] LAB CHEMISTRY METHOD 05/21/2024 10:02 AM EST [facility] Triglycerides 171(H) 0 - 150 mg/dL LAB CHEMISTRY METHOD 05/21/2024 10:02 AM [facility] HDL 41 >=40 mg/dL LAB CHEMISTRY METHOD 05/21/2024 10:02 AM [facility] LDL Calculated 132(H) 0 - 100 mg/dL LAB CHEMISTRY METHOD 05/21/2024 10:02 AM EST [facility] VLDL Cholesterol Gino 34.2 mg/dL LAB CHEMISTRY METHOD 05/21/2024 10:02 AM [facility] Non HDL Chol. (LDL+VLDL) 166(H) <145 mg/dL LAB CHEMISTRY METHOD 05/21/2024 10:02 AM [facility] Chol/HDL Ratio 5.0(H) 0.0 - 4.4 LAB CHEMISTRY METHOD 05/21/2024 10:02 AM EST [facility] Blood Venous blood specimen / Unknown Venipuncture / Unknown 05/21/2024 8:49 AM EST 05/21/2024 9:09 AM EST us Katalina Parker MD LAB BLOOD ORDERABLES Final Res ult [facility] [address] [place] [address], * Hemoglobin A1c (05/21/2024 8:49 AM EST) Hemoglobin A1C 6.0 <6.5 % LAB CHEMISTRY METHOD 05/21/2024 1:34 PM [facility] Mean Bld Glu Estim. 126 mg/dL LAB CHEMISTRY METHOD 05/21/2024 1:34 PM [facility] Blood Venous blood specimen / Unknown Venipuncture / Unknown 05/21/2024 8:49 AM EST 05/21/2024 9:10 AM EST us Katalina Parker MD LAB BLOOD ORDERABLES Final Res ult [facility] [address] [place] [address], [place] [phone] * (ABNORMAL) Comprehensive metabolic panel (05/21/2024 8:49 AM EST) [facility] Sodium 139 133 - 145 mmol/L LAB CHEMISTRY METHOD 05/21/2024 10:02 AM [facility] Potassium 4.9 3.5 - 5.5 mmol/L LAB CHEMISTRY METHOD 05/21/2024 10:02 AM [facility] Chloride 107 96 - 110 mmol/L LAB CHEMISTRY METHOD 05/21/2024 10:02 AM [facility] CO2 25 21 - 32 mmol/L LAB CHEMISTRY METHOD 05/21/2024 10:02 AM [facility] Anion Gap 7 3 - 11 LAB CHEMISTRY METHOD 05/21/2024 10:02 AM [facility] Glucose 102(H) 70 - 100 mg/dL LAB CHEMISTRY METHOD 05/21/2024 10:02 AM [facility] BUN 25 5 - 25 mg/dL LAB CHEMISTRY METHOD 05/21/2024 10:02 AM [facility] Creatinine 0.93 0.50 - 1.10 mg/dL LAB CHEMISTRY METHOD 05/21/2024 10:02 AM [facility] eGFR 69 >=60 mL/min/1. 73m2 LAB CHEMISTRY METHOD 05/21/2024 10:02 AM [facility] Comment:Calculation based on the Chronic Kidney Disease Epidemiology Collaboration (CKD-EPI) equation refit without adjustment for race. BUN/Creatinine Ratio 26.9 LAB CHEMISTRY METHOD 05/21/2024 10:02 AM [facility] Calcium 9.8 8.5 - 10.5 mg/dL LAB CHEMISTRY METHOD 05/21/2024 10:02 AM [facility] AST (SGOT) 20 10 - 42 unit/L LAB CHEMISTRY METHOD 05/21/2024 10:02 AM [facility] ALT (SGPT) 22 10 - 60 unit/L LAB CHEMISTRY METHOD 05/21/2024 10:02 AM [facility] Alkaline Phosphatase 116 42 - 121 unit/L LAB CHEMISTRY METHOD 05/21/2024 10:02 AM [facility] Total Protein 7.2 6.0 - 8.0 g/dL LAB CHEMISTRY METHOD 05/21/2024 10:02 AM [facility] Albumin 3.7 3.2 - 5.0 g/dL LAB CHEMISTRY METHOD 05/21/2024 10:02 AM [facility] Total Bilirubin 0.4 0.0 - 1.4 mg/dL LAB CHEMISTRY METHOD 05/21/2024 10:02 AM [facility] Blood Venous blood specimen / Unknown Venipuncture / Unknown 05/21/2024 8:49 AM EST 05/21/2024 9:09 AM EST us Katalina Parker MD LAB BLOOD ORDERABLES Final Res ult [facility] [address] [place] [address], * Depression Screening (11/27/2023) [facility] Depression Screening Abstracted Historical Provider HEALTH MAINTENANCE Final Result * Diabetes Eye Exam (09/11/2023) [facility] Diabetes: Annual Retina Eye Exam Abstracted Result [facility] Provider HEALTH MAINTENANCE Final Result * Urine Albumin Creatinine Ratio (10/31/2022) [facility] Urine Albumin Creatinine Ratio Abstracted Result [facility] Provider HEALTH MAINTENANCE Final Result * Cervical Cancer Screening: HPV (06/21/2020) Pathologist [facility] Cervical Cancer Screening: HPV Negative, Abstracted Result [facility] Provider HEALTH MAINTENANCE Final Result * Colonoscopy (01/27/2020) [facility] Colonoscopy No Interpretation , Abstracted Anatomical Region Laterality Modality Other Result [facility] Provider HEALTH MAINTENANCE Final Result from Last 3 Months or Most Recently Relevant to Health Maintenance Insurance [facility] MEDICARE Member Subscriber Plan / Payer (Ef fective 2022-Present) Name:Elke Rivers Relation to Subscriber:Self Name:Elke Rivers Payer ID:[id number] Group ID:[id number] Type:Not on file Address: [place] [address] [place] [address] Care Teams Safety Teacher Relationship Specialty Start Date End Date Katalina Parker MD [address] [address] PCP - General Internal Medicine 10/06/20
[2024-10-14 10:02] LABS: Alanine Aminotransferase 26 U/L (0-31); Albumin Level 4.5 g/dL (3.5-5.0); Alkaline Phosphatase 114 U/L (39-117); Anion Gap 12 (12-20); Aspartate Amino Transferase 25 U/L (5-31); Blood Urea Nitrogen 18 mg/dL (9-16); Calcium 9.5 mg/dL (8.4-10.2); Carbon Dioxide 24 mmol/L (22-29); Chloride 108 mmol/L (96-108); Cholesterol 220 mg/dL (<200); Estimated Glomerular Filt Rate > 60; HDL Cholesterol 44 mg/dL (>40); Potassium 4.2 mmol/L (3.3-5.1); Sodium 140 mmol/L (135-145); Total Protein 7.9 g/dL (6.5-8.0); Triglycerides 150 mg/dL (<150)
[2024-10-14 10:57] LABS: Microalbum/Creatinine Ratio Ur 5.5 ug/mg cr (<30)
== END 2024-10-14 08:48 | disposition home or self-care (01) ==
LOC: HO.LAB 08:47
PROVIDERS: Visit Provider Internal Medicine
DX: E55.9 Vitamin D deficiency, unspecified (principal); E78.5 Hyperlipidemia, unspecified; E66.01 Morbid (severe) obesity due to excess calories; Z68.42 Body mass index [BMI] 45.0-49.9, adult; R80.9 Proteinuria, unspecified
CPT/HCPCS: 36415; 80053; 80061; 82043; 82306; 82570

== ENCOUNTER 2024-10-23 07:57 | Outpatient (AMB) | payer OTHER, SELFPAY ==
[2024-10-23 08:00] VITALS: BP 138/90; BMI 44.5
--- NOTE | 2024-10-23 08:00 | MHC.PC.OV ---
Vital Signs 10/23/24 08:00 Height 5 ft Weight 228 lb BMI 44.5 BP 138/90 H Blood Pressure Location Lt brachial Position Sitting Intake Visit Reasons: Annual Exam Intake Note: Patient here for an annual physical exam Pin Ticket Machine Operator Required: No Accompanied by: Self / Same As Patient Allergies Penicillins Allergy (Severe, Verified 10/23/24 08:11) rash, eye swelling Medication List - Last Reconciled 10/23/24 by Nena Maher MD amlodipine 10 mg PO DAILY 90 days calcium acetate 667 mg PO BID 90 days cholecalciferol (vitamin D3) 25 mcg PO DAILY 90 days duloxetine 20 mg PO DAILY 90 days duloxetine 30 mg PO DAILY 90 days gabapentin 100 mg PO TID 90 days hydrochlorothiazide 25 mg PO DAILY 90 days hydroxyzine HCl 10 mg PO Q8H 90 days losartan 50 mg PO DAILY 90 days magnesium oxide 400 mg PO DAILY 90 days meclizine 25 mg PO BID 90 days metformin ER 500 mg PO BID 90 days Tobacco use date assessed: 06/05/24 Fall risk assessment: No Falls in past year Last assessed Fall Risk: 10/23/24 Dental Screening Dental Screen Date: 06/05/24 HPI HPI Comments History of Present Illness Details The patient is a 64-year-old female presenting with a request for a physical exam and preventative care measures. She has a history of osteopenia, diagnosed after a bone density scan earlier this year, for which she is taking calcium and vitamin D supplements. Has obstructive sleep apnea on CPAP for the last 5 years and will be referred to sleep Medicine. She is morbidly obese with a BMI of 44.5 and will start diet and exercise. Declines weight management referral. The patient has a history of hypertension, currently managed with amlodipine and losartan. Her blood pressure is reported to be well-controlled. She has been diagnosed with depression and fibromyalgia, for which she is prescribed duloxetine. Her depression is noted to be moderate to severe, with a PHQ-9 score of 18, and she attends psychiatric consultations. The patient has diabetes mellitus, with a recent HbA1c of 6%, indicating good control. She is on metformin 500 mg twice daily. Hyperlipidemia is noted, and the patient is not currently on medication for cholesterol management. A low-dose cholesterol medication is recommended. The patient experiences anxiety, for which she takes hydroxyzine as needed. Family history includes multiple myeloma and diabetes in her father, and hypertension and Alzheimer's disease in her mother. She does not smoke or consume alcohol. She has undergone a hysterectomy, which is her only surgery. Preventative care measures discussed include a pneumonia vaccination and a diagnostic mammogram with breast ultrasound due to breast pain. - Pneumonia vaccination recommended due to age - Diagnostic mammogram and breast ultrasound due to breast pain - Low-dose cholesterol medication recommended for hyperlipidemia - Colonoscopy done 2020 and next should be 2030. [facility] Medical History (Updated 10/23/24 @ 08:37 by Nena Maher MD) Morbid obesity with BMI of 45.0-49.9, adult Mild major depression Surgical History History of hysterectomy Family History Father Multiple myeloma Diabetes mellitus Mother Essential hypertension Alzheimers disease Social History Housing: Apartment Alcohol intake: never Patient Tobacco Use Status: Never used Tobacco e-Cigarette/Vaping Use: Never Used Second Hand Smoke Exposure: No service: No Current occupational status: disabled Cognitive needs: Yes Hearing needs: No Vision needs: Yes Questionnaire PHQ-9 Over the last 2 weeks, how often have you been bothered by any of the following problems? 1. Little interest or pleasure in doing things: nearly every day 2. Feeling down, depressed, or hopeless: nearly every day 3. Trouble falling or staying asleep, or sleeping too much: nearly every day 4. Feeling tired or having little energy: nearly every day 5. Poor appetite or overeating: more than half the days 6. Feeling bad about yourself - or that you are a failure or have let yourself or your family down: several days 7. Trouble concentrating on things, such as reading the newspaper or watching television: nearly every day 8. Moving or speaking so slowly that other people could have noticed. Or the opposite - being so fidgety or restless that you have been moving around a lot more than usual: not at all 9. Thoughts that you would be better off or of hurting yourself in some way: not at all Total score: 18 Depression Screening Interpretation: Positive (no suicidal thoughts) Depression Screening Follow-up: Existing condition, In treatment, Community Mental Health Worker F/U and Follow-up Visit Requested Depression Screening Done: Yes 64236 - PHQ-9 Billing: Yes Source: Developed by Drs. Kirill Sin, Kristyn Hinton, Renzo Jennings and colleagues, with an educational jasvir from [employer]. Thrive Questionnaire Date Thrive assessed: 06/05/24 I am a: Patient What is your living situation today?: I have a steady place to live Within the past 12 months, did the food you bought not last and you didn't have the money to get more?: Sometimes True Within the past 12 months, did you worry whether your food would run out before you got money to buy more?: Sometimes True Do you have trouble paying for medicines?: No Do you have trouble getting transportation to medical appointments?: No Do you have trouble paying your heating and electricity bill?: No Do you have trouble taking care of your child, family member or friend?: No Do you have trouble with day-to-day activities such as bathing, preparing meals, shopping, managing finances, etc.?: I choose not to answer this question Are you currently unemployed and looking for a job?: No Are you interested in more education?: I choose not to answer this question Please select the resources that you would like help with: Food Currently or been in a relationship where the following occur: I choose not to answer THRIVE Score: 2 AUDIT C Alcohol Use Questionnaire (AUDIT-C) 1. How often do you have a drink containing alcohol?: Never Total Score: 0 Score Reviewed/Action Taken: No JOSHUA-7 AMB Questionnaire JOSHUA-7 Date JOSHUA - 7 assessed: 06/05/24 Feeling nervous, anxious, or on edge: 3 = Nearly every day Not being able to stop or control worryin = Several days Worrying too much about different things: 1 = Several days Trouble relaxin = Several days Being so restless that it is hard to sit still: 0 = Not at all Becoming easily annoyed or irritable: 0 = Not at all Feeling afraid as if something awful might happen: 0 = Not at all Total JOSHUA-7 score (0-4 normal; 5-9 mild; 10-14 moderate; 15-21 severe): 6 Source: Developed by Drs. Kirill Sin, Kristyn Hinton, Renzo Jennings and colleagues, with an educational jasvir from [employer]. JOSHUA-7 Assessment Billing JOSHUA-7 Assessment Tool: JOSHUA-7 Assessment 19816 Review of Systems Const All systems reviewed & are unremarkable except as noted in HPI and below Card Denies chest pain at rest, Denies chest pain with activity, Denies edema, Denies irregular heart rhythm, Denies claudication, Denies dyspnea, Denies dyspnea on exertion, Denies orthopnea, Denies paroxysmal nocturnal dyspnea and Denies slow heart rate Resp Denies cough, Denies dyspnea and Denies dyspnea on exertion GI Denies abdominal pain, Denies change in bowel habits, Denies excessive flatus, Denies nausea and Denies vomiting Denies urinary incontinence, Denies urinary hesitancy and Denies urinary urgency Skin/Breast Reports breast pain Physical exam (Primary Care) Vital Signs: Last Vital Signs BP 138/90 H 10/23/24 08:00 BMI result Body Mass Index 44.5 BMI Assessment/Plan discussion: High BMI High, discussed plan: lifestyle, weight reduction, dietary and physical activity Tobacco/Smoking Status: Tobacco use Status Tobacco use date assessed 06/05/24 10/23/24 08:00 Patient Tobacco Use Status Never used Tobacco 10/23/24 08:00 e-Cigarette/Vaping Use Never Used 10/23/24 08:00 PHQ-9: PHQ-9 Score PHQ-9: Total score 18 10/23/24 08:18 Depression Screening Interpretation: Positive (no suicidal thoughts) Depression Screening Follow-up: Existing condition, In treatment, Community Mental Health Worker F/U and Follow-up Visit Requested Thrive Assessment: Date of Thrive Assessment Date Thrive assessed 06/05/24 10/23/24 08:00 Currently or been in a relationship where the following occur: I choose not to answer Const Limitations: ambulation with cane HENMT Head: Yes normal to inspection, Yes normocephalic and Yes atraumatic Ears: external ears normal Eyes General: appearance normal, both eyes and all related structures Eyelids: Yes eyelids normal Conjunctivae: conjunctivae normal Neck Neck: Yes normal visual inspection and Yes supple Resp Effort & Inspection: normal respiratory effort Auscultation: clear to auscultation bilaterally Cardio Jugular venous distension: no JVD Rate: regular rate Rhythm: regular rhythm Heart sounds: S1 normal heart sound present and S2 normal heart sound present GI Inspection: Yes normal to inspection Palpation (GI): Soft to palpation and nontender Auscultation: normal bowel sounds Skin General skin exam: no rashes or lesions noted Neuro General: no focal motor deficits Extrem General: Yes full ROM Psych Appearance: grossly normal Results AMB Hemoglobin A1c AMB Hemoglobin A1c 6.0 % Last Edit by XIMENA Vilchis on 10/23/24 08:10 Immunizations pneumoc 20-aminah conj-dip cr(PF) 0.5 mL IM syringe Performing Provider: Nena Maher MD [facility] [place] [facility] Administered by: XIMENA Vilchis on 10/23/24 08:31 Dose Route Admin Location Dispensed Lot Number Expiration Date NDC Reference Library Assistant 0.5 mL IM Right Deltoid 0.5 mL [id number] 09/23/25 Always Prepped/Washio Total Dispensed Waste 0.5 mL 0 % VIS Given Date VIS Provided VIS Publication Date 10/23/24 Single Vaccine 24 Eligibility Eligibility Date Funding Source Not [facility] Eligible 10/23/24 Private Results Reviewed Results Reviewed: Laboratory Last Values Hgb A1c (Clinic) 6.0 % (4.0-6.0) 10/23/24 08:09 Coding Level of Care Code Est Pt Level 4 (86557) Est Pt Prev Care >65y(01272) Diagnoses Physical exam Z00.00 Breast pain, right N64.4 Breast pain, left N64.4 MELINDA on CPAP G47.33 Type 2 diabetes mellitus without complication, without long-term current use of insulin E11.9 Diabetes mellitus type: type 2 Diabetes mellitus detention insulin use: without termite renewal inspector use Diabetes mellitus complication status: without complication Moderate recurrent major depression F33.1 Hyperlipidemia LDL goal <70 E78.5 Morbid obesity with BMI of 40.0-44.9, adult E66.01; Z68.41 Additional Codes PHQ-9 - 27508 - PHQ-9 Billing: Yes ([id number]) JOSHUA-7 Assessment Billing - JOSHUA-7 Assessment Tool: JOSHUA-7 Assessment 87028 ([id number]) Time Spent (min) 38 Assessment & Plan Assessment & Plan (1) Physical exam: Code(s): Z00.00 - Encounter for general adult medical examination without abnormal findings Category: Medical (2) Breast pain, right: Comment: at 9 o'clock Code(s): N64.4 - Mastodynia Category: Medical (3) Breast pain, left: Comment: at 3 o'clock Code(s): N64.4 - Mastodynia Category: Medical (4) MELINDA on CPAP: Code(s): G47.33 - Obstructive sleep apnea (adult) (pediatric) Category: Medical (5) Diabetes mellitus: Code(s): E11.9 - Type 2 diabetes mellitus without complications Category: Medical Qualifiers: Diabetes mellitus type: type 2 Diabetes mellitus detention insulin use: without termite renewal inspector use Diabetes mellitus complication status: without complication Qualified Code(s): E11.9 - Type 2 diabetes mellitus without complications (6) Moderate recurrent major depression: Code(s): F33.1 - Major depressive disorder, recurrent, moderate Category: Medical (7) Hyperlipidemia LDL goal <70: Code(s): E78.5 - Hyperlipidemia, unspecified Category: Medical (8) Morbid obesity with BMI of 40.0-44.9, adult: Code(s): E66.01 - Morbid (severe) obesity due to excess calories; Z68.41 - Body mass index [BMI] 40.0-44.9, adult Category: Medical Plan The patient will receive a pneumonia vaccination today as part of her preventative care measures due to her age. A diagnostic mammogram and breast ultrasound are recommended to evaluate her reported breast pain. Management of her hyperlipidemia will include starting a low-dose cholesterol medication, which is expected to be taken at night for optimal efficacy. Her diabetes management will continue with metformin, given her current HbA1c of 6%, which indicates good control. Her hypertension will continue to be managed with amlodipine and losartan, as her blood pressure is well-controlled. For her depression and fibromyalgia, duloxetine will be continued, and she will maintain her psychiatric consultations. Hydroxyzine will be used as needed for anxiety management. Patient was informed and verbally consented to the use of an ambient scribe for clinic note documentation during this visit. Orders: Orders AMB Hemoglobin A1c Today E11.9 - Type 2 diabetes mellitus without complications MM diagnostic mammo BI Today N64.4 - Mastodynia US breast LT limited Today N64.4 - Mastodynia Microalbumin, Random (w Creat) 4 Months R80.9 - Proteinuria, unspecified Vitamin D 25-OH Total 4 Months E55.9 - Vitamin D deficiency, unspecified Pneumococcal 20 Immunization Today Z23 - Encounter for immunization US breast RT limited Today N64.4 - Mastodynia Lipid Panel 4 Months E78.5 - Hyperlipidemia, unspecified Comprehensive [place]. Panel Fast 4 Months E11.9 - Type 2 diabetes mellitus without complications Referrals Sleep Medicine Referral G47.33 - Obstructive sleep apnea (adult) (pediatric) Medications: New rosuvastatin 10 mg PO DAILY 90 tabs 1RF 90 days E78.5 - Hyperlipidemia, unspecified
--- OUTSIDE RECORDS SUMMARY | 2024-10-23 08:00 | XMS_ITS | Clinical Summary ---
Author Organization 175 [facility] Address [address] [place] [address] Phone Care Team Providers Care Water Chemist Name Role Phone Katalina Parker MD Primary Care Provider [phone] Allergies Active Allergy Reactions Criticality Noted Date [...] chloride (AYR) 0.65 % nasal drops 1 [place] by Nasal route 4 times daily as [...] Problems Problem Noted Date Diagnosed Date Diabetes ([facility] V24, [facility] V28) 02/22/2021 Peripheral arterial disease ([facility] V24) 2020 Overview (01/30/2024): Per QuantFlo results 05/2020: L>R, awaiting appt to discuss and make recommendations Anxiety 06/16/2020 Degenerative disc disease, lumbar 11/28/2019 Osteoarthritis 11/28/2019 Asthma 11/26/2019 Depression with anxiety 11/26/2019 Hypertension 11/26/2019 MELINDA (obstructive sleep apnea) 11/26/2019 Overview (01/30/2024): [facility] Home Sleep Apnea Test: Date 02/26/2020; Wt [...] LAB CHEMISTRY METHOD 05/21/2024 10:02 AM EST [facility] Triglycerides 171(H) 0 - 150 mg/dL LAB CHEMISTRY METHOD 05/21/2024 10:02 AM [facility] HDL 41 >=40 mg/dL LAB CHEMISTRY METHOD 05/21/2024 10:02 AM [facility] LDL Calculated 132(H) 0 - 100 mg/dL LAB CHEMISTRY METHOD 05/21/2024 10:02 AM EST [facility] VLDL Cholesterol Gino 34.2 mg/dL LAB CHEMISTRY METHOD 05/21/2024 10:02 AM [facility] Non HDL Chol. (LDL+VLDL) 166(H) <145 mg/dL LAB CHEMISTRY METHOD 05/21/2024 10:02 AM [facility] Chol/HDL Ratio 5.0(H) 0.0 - 4.4 LAB CHEMISTRY METHOD 05/21/2024 10:02 AM EST [facility] Blood Venous blood specimen / Unknown Venipuncture / Unknown 05/21/2024 8:49 AM EST 05/21/2024 9:09 AM EST us Katalina Parker MD LAB BLOOD ORDERABLES Final Res ult [facility] [address] [place] [address], * Hemoglobin A1c (05/21/2024 8:49 AM EST) Hemoglobin A1C 6.0 <6.5 % LAB CHEMISTRY METHOD 05/21/2024 1:34 PM [facility] Mean Bld Glu Estim. 126 mg/dL LAB CHEMISTRY METHOD 05/21/2024 1:34 PM [facility] Blood Venous blood specimen / Unknown Venipuncture / Unknown 05/21/2024 8:49 AM EST 05/21/2024 9:10 AM EST us Katalina Parker MD LAB BLOOD ORDERABLES Final Res ult [facility] [address] [place] [address], [place] [phone] * (ABNORMAL) Comprehensive metabolic panel (05/21/2024 8:49 AM EST) [facility] Sodium 139 133 - 145 mmol/L LAB CHEMISTRY METHOD 05/21/2024 10:02 AM [facility] Potassium 4.9 3.5 - 5.5 mmol/L LAB CHEMISTRY METHOD 05/21/2024 10:02 AM [facility] Chloride 107 96 - 110 mmol/L LAB CHEMISTRY METHOD 05/21/2024 10:02 AM [facility] CO2 25 21 - 32 mmol/L LAB CHEMISTRY METHOD 05/21/2024 10:02 AM [facility] Anion Gap 7 3 - 11 LAB CHEMISTRY METHOD 05/21/2024 10:02 AM [facility] Glucose 102(H) 70 - 100 mg/dL LAB CHEMISTRY METHOD 05/21/2024 10:02 AM [facility] BUN 25 5 - 25 mg/dL LAB CHEMISTRY METHOD 05/21/2024 10:02 AM [facility] Creatinine 0.93 0.50 - 1.10 mg/dL LAB CHEMISTRY METHOD 05/21/2024 10:02 AM [facility] eGFR 69 >=60 mL/min/1. 73m2 LAB CHEMISTRY METHOD 05/21/2024 10:02 AM [facility] Comment:Calculation based on the Chronic Kidney Disease Epidemiology Collaboration (CKD-EPI) equation refit without adjustment for race. BUN/Creatinine Ratio 26.9 LAB CHEMISTRY METHOD 05/21/2024 10:02 AM [facility] Calcium 9.8 8.5 - 10.5 mg/dL LAB CHEMISTRY METHOD 05/21/2024 10:02 AM [facility] AST (SGOT) 20 10 - 42 unit/L LAB CHEMISTRY METHOD 05/21/2024 10:02 AM [facility] ALT (SGPT) 22 10 - 60 unit/L LAB CHEMISTRY METHOD 05/21/2024 10:02 AM [facility] Alkaline Phosphatase 116 42 - 121 unit/L LAB CHEMISTRY METHOD 05/21/2024 10:02 AM [facility] Total Protein 7.2 6.0 - 8.0 g/dL LAB CHEMISTRY METHOD 05/21/2024 10:02 AM [facility] Albumin 3.7 3.2 - 5.0 g/dL LAB CHEMISTRY METHOD 05/21/2024 10:02 AM [facility] Total Bilirubin 0.4 0.0 - 1.4 mg/dL LAB CHEMISTRY METHOD 05/21/2024 10:02 AM [facility] Blood Venous blood specimen / Unknown Venipuncture / Unknown 05/21/2024 8:49 AM EST 05/21/2024 9:09 AM EST us Katalina Parker MD LAB BLOOD ORDERABLES Final Res ult [facility] [address] [place] [address], * Depression Screening (11/27/2023) [facility] Depression Screening Abstracted Historical Provider HEALTH MAINTENANCE Final Result * Diabetes Eye Exam (09/11/2023) [facility] Diabetes: Annual Retina Eye Exam Abstracted Result [facility] Provider HEALTH MAINTENANCE Final Result * Urine Albumin Creatinine Ratio (10/31/2022) [facility] Urine Albumin Creatinine Ratio Abstracted Result [facility] Provider HEALTH MAINTENANCE Final Result * Cervical Cancer Screening: HPV (06/21/2020) Pathologist [facility] Cervical Cancer Screening: HPV Negative, Abstracted Result [facility] Provider HEALTH MAINTENANCE Final Result * Colonoscopy (01/27/2020) [facility] Colonoscopy No Interpretation , Abstracted Anatomical Region Laterality Modality Other Result [facility] Provider HEALTH MAINTENANCE Final Result from Last 3 Months or Most Recently Relevant to Health Maintenance Insurance [facility] MEDICARE Member Subscriber Plan / Payer (Ef fective 2022-Present) Name:Elke Rivers Relation to Subscriber:Self Name:Elke Rivers Payer ID:[id number] Group ID:[id number] Type:Not on file Address: [place] [address] [place] [phone] Care Teams Water Chemist Relationship Specialty Start Date End Date Katalina Parker MD [address] [address] PCP - General Internal Medicine 10/06/20
== END 2024-10-23 08:36 | disposition home or self-care (01) ==
LOC: HO.HMCH 07:58
PROVIDERS: PCP Internal Medicine; Visit Provider Internal Medicine
DX: Z00.00 Encounter for general adult medical examination without abnormal findings (principal); E11.9 Type 2 diabetes mellitus without complications; F33.1 Major depressive disorder, recurrent, moderate; E66.01 Morbid (severe) obesity due to excess calories; Z68.41 Body mass index [BMI] 40.0-44.9, adult; N64.4 Mastodynia; G47.33 Obstructive sleep apnea (adult) (pediatric); E78.5 Hyperlipidemia, unspecified; Z23 Encounter for immunization

== ENCOUNTER → 2024-10-23 07:57 | Outpatient (BNVA) | payer OTHER, SELFPAY | PROVIDERS: Visit Provider Internal Medicine | DX: Z00.00 Encounter for general adult medical examination without abnormal findings (principal); M85.80 Other specified disorders of bone density and structure, unspecified site; G47.33 Obstructive sleep apnea (adult) (pediatric); E66.01 Morbid (severe) obesity due to excess calories; I10 Essential (primary) hypertension; M79.7 Fibromyalgia; E11.9 Type 2 diabetes mellitus without complications; E78.5 Hyperlipidemia, unspecified; N64.4 Mastodynia; F33.1 Major depressive disorder, recurrent, moderate; Z23 Encounter for immunization; Z68.41 Body mass index [BMI] 40.0-44.9, adult; Z99.89 Dependence on other enabling machines and devices; Z79.899 Other long term (current) drug therapy | CPT/HCPCS: 83036; 90471; 90677; 96127; 99212; 99397 ==

== ENCOUNTER → 2024-10-27 20:20 | Outpatient (BNV) | payer OTHER, SELFPAY | PROVIDERS: PCP Internal Medicine; Visit Provider Radiology Diagnostic Radiology | DX: R07.9 Chest pain, unspecified (principal); R06.02 Shortness of breath | CPT/HCPCS: 71046 ==

== ENCOUNTER 2024-10-27 20:44 | Emergency (ER) | payer OTHER, SELFPAY ==
--- NOTE | ~2024-10-27 | XR_ITS ---
CLINICAL HISTORY: SOB, CP Chest X-ray, 2 Views COMPARISON: None provided FINDINGS: No consolidation. Mild bibasilar atelectasis. No pleural effusion. No pneumothorax. No cardiomegaly. No acute fracture. Degenerative changes in the spine. IMPRESSION: No acute findings. This document has been electronically signed by: Pavel Alicea MD on 10/27/2024 22:02:46
--- NOTE | 2024-10-27 20:47 | ECG_ITS ---
Test Reason : CHEST PAIN Blood Pressure : */* mmHG Vent. Rate : 86 BPM Atrial Rate : 86 BPM P-R Int : 134 ms QRS Dur : 98 ms QT Int : 356 ms P-R-T Axes : 41 -30 65 degrees QTcB Int : 426 ms Normal sinus rhythm Left axis deviation Moderate voltage criteria for LVH, may be normal variant ( R in aVL , [place] product ) Abnormal ECG No previous ECGs available Referred By: Monika Boston Electronically Signed By: JUANCARLOS FRAZIER
[2024-10-27 21:05] VITALS: BP 163/89; PULSE 82; RESP 16; TEMP 37; O2SAT 94; BMI 42.1
[2024-10-27 22:01] LABS: MANUAL DIFF FLAG NO
[2024-10-27 22:07] LABS: Hematocrit 42.0 % (37.0-47.0); Hemoglobin 14.3 g/dl (12.0-16.0); Imm Gran Abs Auto 0.03 X10*3/uL (0.00-0.03); Imm Gran Pct Auto 0.3 % (0.0-0.4); Lymphocytes Absolute Auto 3.6 X10*3/uL (1.2-4.9); Mean Corpuscular HGB Conc 34.0 g/dl (31.0-35.0); Mean Corpuscular Hemoglobin 29.1 pg (27.0-33.0); Mean Corpuscular Volume 85.5 fL (80.0-98.0); NRBC Abs Auto 0.000 X10*3/uL (0.0-0.012); NRBC Pct Auto 0.0 /100WBC (0.0-0.2); Platelet Count 295 X10*3/uL (160-400); Red Blood Count 4.91 X10*6/uL (4.20-5.50); White Blood Count 10.9 X10*3/uL (4.8-10.8)
[2024-10-27 22:11] LABS: IDNOW Serial# 55D5AD1C; Strep A Nucleic Acid Positive (Negative)
[2024-10-27 22:23] LABS: Alanine Aminotransferase 26 U/L (0-31); Albumin Level 4.7 g/dL (3.5-5.0); Alkaline Phosphatase 124 U/L (39-117); Anion Gap 13 (12-20); Aspartate Amino Transferase 25 U/L (5-31); Blood Urea Nitrogen 17 mg/dL (9-16); Calcium 10.3 mg/dL (8.4-10.2); Carbon Dioxide 27 mmol/L (22-29); Chloride 105 mmol/L (96-108); Creatinine Clr Calc Pharmacy 62.3; Estimated Glomerular Filt Rate 54; Lipase 11 U/L (8-78); Potassium 5.4 mmol/L (3.3-5.1); Sodium 140 mmol/L (135-145); Total Protein 8.2 g/dL (6.5-8.0); Troponin-I High Sensitivity 2.7 ng/L (<3.5-17.0)
[2024-10-27 22:40] LABS: Resp Syncy Virus RNA Qual PCR NEGATIVE (Negative); SARS COV2 PCR INHOUSE NEGATIVE (Negative)
[2024-10-28 01:48] VITALS: BP 179/77; PULSE 69; RESP 16; TEMP 36.8; O2SAT 95
[2024-10-28 02:09] LABS: Appearance Urine Clear; Glucose Urine UA Negative (Negative); PH 6.0 (5.0-9.0); Specific Gravity - Urine 1.010 (1.005-1.025)
--- NOTE | 2024-10-28 02:25 | ED_ITS ---
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 Lavern Ferreira HPI narrative: 64-year-old female with a history of diabetes, hypertension and sleep apnea presenting with epigastric abdominal pain, difficulty swallowing with a sore throat ongoing for the last 3 days or so. Describes a sore throat and painful swallowing that has progressed to upper abdominal pain. Pain is nonradiating, intermittent in nature, associated with nausea but no vomiting. Describes an associated poor appetite. No reported fever. Denies chest pain or difficulty breathing. Does admit to an associated dry cough that has been persistent as well. No known sick contacts or travel. Related Data Previous Rx's ?Medication ?Instructions ?Recorded amlodipine 10 mg tablet 10 mg PO DAILY 90 days #90 t abs 08/15/24 duloxetine 20 mg capsule,delayed 20 mg PO DAILY 90 day s #90 caps 08/15/24 release duloxetine 30 mg capsule,delayed 30 mg PO DAILY 90 day s #90 caps 08/15/24 release gabapentin 100 mg capsule 100 mg PO TID 90 days #270 c aps 08/15/24 hydrochlorothiazide 25 mg tablet 25 mg PO DAILY 90 day s #90 tabs 08/15/24 hydroxyzine HCl 10 mg tablet 10 mg PO Q8H 90 days #270 tabs 08/15/24 losartan 50 mg tablet 50 mg PO DAILY 90 days #90 t abs 08/15/24 magnesium oxide 400 mg (241.3 mg 400 mg PO DAILY 90 da ys #90 tabs 08/15/24 magnesium) tablet meclizine 25 mg tablet 25 mg PO BID 90 days #180 ta bs 08/15/24 metformin 500 mg tablet,extended 500 mg PO BID 90 days #180 tabs 08/15/24 release 24 hr calcium acetate 667 mg tablet 667 mg PO BID 90 days #1 80 tabs 08/16/24 cholecalciferol (vitamin D3) 25 25 mcg PO DAILY 90 day s #90 tabs 08/16/24 mcg (1,000 unit) tablet rosuvastatin 10 mg tablet 10 mg PO DAILY 90 days #90 t abs 10/23/24 clindamycin HCl 300 mg capsule 300 mg PO Q8H 7 days #2 1 caps 10/28/24 (Cleocin HCl) famotidine 40 mg/5 mL (8 mg/mL) 20 mg (2.5 mL) PO BID #100 mL 10/28/24 oral suspension phenol 1.4 % mucosal aerosol spray 4 spray mucous memb kelsey Q4H PRN 10/28/24 (Chloraseptic Throat [place]) sore throat #20 mL Allergies Allergy/AdvReac Type Severity Reaction Status Date / Time Penicillins Allergy Severe rash, eye Verified 10/27/24 21:11 swelling Review of Systems 2 Review of Systems: as per HPI, full review of systems performed and negative but for the above mentioned pertinent positives and negatives. [facility] Past Medical History [facility] Narrative: Diabetes, hypertension, hyperlipidemia, sleep apnea Medical History Morbid obesity with BMI of 45.0-49.9, adult Mild major depression Surgical History History of hysterectomy Family History Family History Father Multiple myeloma Diabetes mellitus Mother Essential hypertension Alzheimers disease Social History Social History Housing: Apartment Alcohol intake: never Patient Tobacco Use Status: Never used Tobacco Smoked in Last 30 Days: No e-Cigarette/Vaping Use: Never Used Second Hand Smoke Exposure: No Use of substances other than those prescribed or required for medical reasons: No Advance Directives: No Advance Directives Information Provided: Yes Do you have a plan to hurt others: No Plan service: No Current occupational status: disabled Cognitive needs: Yes Hearing needs: No Vision needs: Yes Physical Exam ED Exam Exam: GENERAL: Ill-Appearing, appears uncomfortable. SKIN: Normal skin color for ethnicity, warm, dry, no rashes noted. HEENT: Normocephalic, atraumatic, no stridor, dry mucous membranes, dentition intact, EOMI, PERRLA, posterior oropharynx is erythematous, no exudates noted. NECK: Soft, supple, full ROM, midline structures nontender, no step-offs, no deformities, shotty anterior cervical lymphadenopathy. CHEST: Heart regular rhythm, no murmurs, symmetric chest rise and fall. PULMONARY: Clear to auscultation bilaterally, diminished at the bases, no labored breathing, no wheezes/rhales/rhonchi. ABDOMINAL: Soft, nondistended, nontender, positive bowel sounds in all quadrants. : Deferred. MUSCULOSKELETAL: Normal tone, full range of motion, no deformities, no peripheral edema. NEURO: Alert and oriented x3, CN II through XII intact, equal strength and sensation bilateral upper and lower extremities, no focal neurologic deficits. PSYCHIATRIC: Flat affect, fluid speech, good eye contact and appropriate demeanor. Vital Signs: Vital Signs - 24 hr 10/27/24 21:05 10/28/24 01:48 10/28/24 03:47 Temperature 98.6 F 98.3 F 97.7 F Pulse Rate 82 69 59 Respiratory Rate 16 16 15 Blood Pressure 163/89 H 179/77 H 132/71 Pulse Oximetry 94 95 99 Oxygen Delivery Method Room Air Room Air Room Air 10/28/24 05:00 Temperature 97.7 F Pulse Rate 59 Respiratory Rate 15 Blood Pressure 132/71 Pulse Oximetry 99 Oxygen Delivery Method Room Air BMI result Body Mass Index 42.1 Medications Administered Discontinued Medications Generic Name Dose Route Start Last Admin Trade Name Freq PRN Reason Stop Dose Admin Azithromycin 500 mg 10/28/24 04:37 10/28/24 04:43 Azithromycin 500 Mg Tablet PO 10/28/24 04:38 500 mg ONCE ONE Administration Clindamycin HCl 450 mg 10/28/24 04:02 10/28/24 04:43 Clindamycin Hcl 150 Mg Capsule PO 10/28/24 04:03 Not Given ONCE ONE Dexamethasone Sodium Phosphate 10 mg 10/28/24 04:02 10/28/24 04:44 Dexamethasone Sod Phosphate 10 Mg/Ml Vial IVPUSH 10/28/24 04:03 10 mg ONCE ONE Administration Famotidine 20 mg 10/28/24 04:02 10/28/24 04:44 Famotidine/Pf 20 Mg/2 Ml Vial IVPUSH 10/28/24 04:03 20 mg ONCE ONE Administration Lidocaine HCl 15 ml 10/28/24 04:02 10/28/24 04:52 Lidocaine Hcl Viscous 2 % 15 Ml Solution MUCOUS MEM 10/28/24 04:03 15 ml ONCE ONE Administration Medical Decision Making Medical Decision Making MDM Narrative: Patient presents today with a chief complaint of sore throat. Differential diagnosis includes pharyngitis as well as ENT emergencies such as epiglottitis, retropharyngeal abscess, peritonsillar abscess, James's angina, angioedema, allergic reaction, among many others. On exam, patient is nontoxic, tolerating their secretions, without signs of respiratory distress. Strep swab is positive. We do not have clindamycin on formulary and the patient is allergic to penicillin so I will treat her with a single dose of azithromycin and then have her start clindamycin as an outpatient. Her abdominal exam is benign. Suspect that she is having a viral process. Using shared decision making, plan for discharge home to follow-up with primary care and/or specialist. Patient understands and agrees with plan for discharge. Discharged home in stable condition. Differential Diagnosis Differential Diagnoses: The differential diagnosis associated with the presentation includes (As above) Admission/Observation Consideration of admission/observation: Escalation of care including admission/observation considered Lab Data [facility] Lab Attestation statement: I reviewed the patient's lab results. 10/27/24 21:55 10/27/24 21:55 Labs: Lab Results 10/27/24 10/27/24 10/28/24 Range/Units 21:55 21:57 02:02 WBC 10.9 H (4.8-10.8) X10*3/uL RBC 4.91 (4.20-5.50) X10*6/uL Hgb 14.3 (12.0-16.0) g/dl Hct 42.0 (37.0-47.0) % MCV 85.5 (80.0-98.0) fL MCH 29.1 (27.0-33.0) pg MCHC 34.0 (31.0-35.0) g/dl RDW 13.8 (11.0-16.0) % Plt Count 295 (160-400) X10*3/uL MPV 9.7 (9.4-12.3) fL Immature Gran % (Auto) 0.3 (0.0-0.4) % Neut % (Auto) 48.7 (45-73) % Lymph % (Auto) 33.1 (20-40) % [place] % (Auto) 6.3 (2-11) % Eos % (Auto) 10.9 H (0-4) % Baso % (Auto) 0.7 (0-2) % Lymph # (Auto) 3.6 (1.2-4.9) X10*3/uL [place] # (Auto) 0.7 (0.1-1.2) X10*3/uL Eos # (Auto) 1.2 H (0.0-0.4) X10*3/uL Baso # (Auto) 0.1 (0.0-0.2) X10*3/uL Abs Immat Gran (auto) 0.03 (0.00-0.03) X10*3/uL Absolute Neuts (auto) 5.3 (2.0-8.3) x10*3/uL Absolute Nucleated RBC 0.000 (0.0-0.012) X10*3/uL Nucleated RBC % (auto) 0.0 (0.0-0.2) /100WBC Sodium 140 (135-145) mmol/L Potassium 5.4 H D (3.3-5.1) mmol/L Chloride 105 (96-108) mmol/L Carbon Dioxide 27 (22-29) mmol/L Anion Gap 13 (12-20) BUN 17 H (9-16) mg/dL Creatinine 1.02 (0.5-1.4) mg/dL Estim Creat Clear Calc 62.3 Estimated GFR 54 Random Glucose 124 H (60-115) mg/dL Calcium 10.3 H D (8.4-10.2) mg/dL Total Bilirubin 0.3 (0.0-1.0) mg/dL AST 25 (5-31) U/L ALT 26 (0-31) U/L Alkaline Phosphatase 124 H (39-117) U/L Troponin I High Sens 2.7 (<3.5-17.0) ng/L Total Protein 8.2 H (6.5-8.0) g/dL Albumin 4.7 (3.5-5.0) g/dL Lipase 11 (8-78) U/L Urine Color Yellow Urine Appearance Clear Urine pH 6.0 (5.0-9.0) Ur Specific [place] 1.010 (1.005-1.025) Urine Protein Negative (Neg-Trace) mg/dL Urine Glucose (UA) Negative (Negative) mg/dL Urine Ketones Negative (Negative) mg/dL Urine Blood Negative (Negative) Urine Nitrite Negative (Negative) Ur Leukocyte Esterase Negative (Negative) Influenza Type A (PCR) NEGATIVE (Negative) Influenza Type B (PCR) NEGATIVE (Negative) RSV RNA Qual (PCR) NEGATIVE (Negative) SARS-CoV-2 RNA (RT-PCR) NEGATIVE (Negative) S. pyogenes GrpA EDILBERTO Positive A (Negative) Prescription Management I considered prescription management with: Pain Medication and Antibiotic Chronic Conditions Patient?s care impacted by: Diabetes and Hypertension Discharge Plan Discharge Clinical Impression: Acute streptococcal pharyngitis, Acute abdominal pain Patient Disposition: Home, Self-Care Instructions: Strep Throat (ED) Additional Instructions: Take your antibiotics as prescribed until the course is completed. Do not stop this medication early if you start to feel better. Return to the emergency department with any new or worsening symptoms including: Worsening pain in your throat despite medication, inability to tolerate food or drink, fevers greater than 100?, difficulty breathing, difficulty swallowing, any new symptom that concerns you. Call 911 with any medical emergency. [place] antibi?ticos seg?n lo prescrito hasta completar el tratamiento. No suspenda sada medicamento antes de tiempo si empieza a sentirse mejor. Regrese a urgencias si presenta cualquier s?ntoma nuevo o que empeore, incluyendo: aumento del dolor de garganta a pesar de la medicaci?n, incapacidad para tolerar alimentos o bebidas, fiebre superior a 38 ?C, dificultad para respirar, dificultad para tragar o cualquier s?ntoma nuevo que le preocupe. Llame al 911 ante cualquier emergencia m?dica. Prescriptions: New clindamycin HCl [Cleocin HCl] 300 mg capsule 300 mg PO Q8H 7 Days Qty: 21 0RF Chloraseptic Throat [place] 1.4 % aerosol,spray 4 spray mucous membrane Q4H PRN (Reason: sore throat) Qty: 20 0RF famotidine 40 mg/5 mL (8 mg/mL) suspension for reconstitution 20 mg PO BID Qty: 100 0RF No Action amlodipine 10 mg tablet 10 mg PO DAILY 90 Days Qty: 90 1RF duloxetine 30 mg capsule,delayed release(DR/EC) 30 mg PO DAILY 90 Days Qty: 90 1RF duloxetine 20 mg capsule,delayed release(DR/EC) 20 mg PO DAILY 90 Days Qty: 90 1RF gabapentin 100 mg capsule 100 mg PO TID 90 Days Qty: 270 1RF hydrochlorothiazide 25 mg tablet 25 mg PO DAILY 90 Days Qty: 90 1RF hydroxyzine HCl 10 mg tablet 10 mg PO Q8H 90 Days Qty: 270 1RF losartan 50 mg tablet 50 mg PO DAILY 90 Days Qty: 90 1RF magnesium oxide 400 mg (241.3 mg magnesium) tablet 400 mg PO DAILY 90 Days Qty: 90 1RF meclizine 25 mg tablet 25 mg PO BID 90 Days Qty: 180 1RF metformin 500 mg tablet extended release 24 hr 500 mg PO BID 90 Days Qty: 180 1RF cholecalciferol (vitamin D3) 25 mcg (1,000 unit) tablet 25 mcg PO DAILY 90 Days Qty: 90 1RF calcium acetate 667 mg tablet 667 mg PO BID 90 Days Qty: 180 1RF rosuvastatin 10 mg tablet 10 mg PO DAILY 90 Days Qty: 90 1RF Interventions: ED Discharge Assessment Last Done: 10/28/24 05:00 Discharge Date/Time: 10/28/24 05:01 Print Language: Yoruba
[2024-10-28 03:47] VITALS: BP 132/71; PULSE 59; RESP 15; TEMP 36.5; O2SAT 99
[2024-10-28] MEDS: Lidocaine HCl Viscous 2 % 15 ML SOLUTION MUCOUS MEM (04:52)
[2024-10-28 05:00] VITALS: BP 132/71; PULSE 59; RESP 15; TEMP 36.5; O2SAT 99
== END 2024-10-28 05:01 | disposition home or self-care (01) ==
PROVIDERS: Emergency Provider Emergency Medicine; PCP Internal Medicine
DX: J02.0 Streptococcal pharyngitis (principal); R10.13 Epigastric pain; E11.9 Type 2 diabetes mellitus without complications; I10 Essential (primary) hypertension; G47.30 Sleep apnea, unspecified; R13.10 Dysphagia, unspecified; J02.9 Acute pharyngitis, unspecified; Z03.818 Encounter for observation for suspected exposure to other biological agents ruled out
CPT/HCPCS: 36415; 71046; 80053; 81003; 83690; 84484; 85025; 87637; 87651; 93005; 96374; 96375; 99284; J1100; J1308

== ENCOUNTER → 2024-10-27 20:47 | Outpatient (BNV) | payer OTHER, SELFPAY | PROVIDERS: Emergency Provider Emergency Medicine; PCP Internal Medicine; Visit Provider Internal Medicine | DX: R94.31 Abnormal electrocardiogram [ECG] [EKG] (principal); R07.9 Chest pain, unspecified | CPT/HCPCS: 93010 ==

== ENCOUNTER 2024-11-07 07:29 | Outpatient (AMB) | payer OTHER, SELFPAY ==
--- OUTSIDE RECORDS SUMMARY | 2024-11-07 07:31 | XMS_ITS | Clinical Summary ---
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 4 Active amLODIPine (NORVASC) 10 mg tablet Take 1 Tablet by mouth daily. 4 Active atorvastatin (LIPITOR) 20 mg tablet Take 1 Tablet by mouth daily for 360 days. 4 11/22/19 25 Active cholecalcifero l (VITAMIN D-3) 25 mcg (1,000 unit) tablet Take 1 Tablet by mouth daily. 4 Active clotrimazole (LOTRIMIN) 1 % cream Apply to skin and toenails daily for 12 weeks 4 Active diclofenac (VOLTAREN) 1 % topical gel Apply 4 g topically 2 times daily. 4 Active DULoxetine (CYMBALTA) [address] capsule Take 1 Capsule by mouth daily. 4 Active fluticasone propion-salmet Ximena (ADVAIR HFA) 230-21 mcg/actuation inhaler Inhale 2 [...] 1 Tablet by mouth daily. 4 Active cyclobenzaprin e (FLEXERIL) 5 mg tablet Take 1 Tablet by mouth 2 times daily as needed for Muscle spasms. 3 Active FREESTYLE LANCETS MISC 1 Each by Does not apply route 2 times daily. 3 Active hydroCHLOROthi azide (HYDRODIURIL) 25 mg tablet Take 1 Tablet by mouth daily. 4 Active losartan (COZAAR) 100 mg tablet Take 1 Tablet by mouth daily for 180 days. 4 Active meclizine (ANTIVERT) 25 mg tablet Take 1 Tablet by mouth 2 times daily as needed for Other. 4 Active metFORMIN XR (GLUCOPHAGE-XR ) 500 mg 24 hr tablet Take 1 tablet by mouth twice a day 4 Active montelukast (SINGULAIR) 10 mg tablet Take 1 Tablet by mouth at bedtime. 4 Active senna-docusate (PERICOLACE) 8.6-50 mg per tablet Take 1 Tablet by mouth daily. 4 Active sodium chloride (AYR) 0.65 % nasal drops 1 [place] by Nasal route 4 times daily as needed for Congestion. 3 Active magnesium oxide (MAG-OX) 400 mg magnesium tablet Take 1 Tablet by mouth daily. 4 Active blood sugar diagnostic (FreeStyle Lite Strips) test strip 1 Strip by In Vitro route 2 times daily. 4 Active blood-glucose meter kit 1 Device by Does not apply route daily. 3 Active aspirin 81 mg EC tablet Take 1 Tablet by mouth daily for 360 days. 4 10/27/19 25 naproxen (NAPROSYN) 250 mg tablet Take 1 Tablet by mouth 2 times daily (with meals) for 360 days. 4 10/28/19 25 Active Problems Problem Noted Date Diagnosed Date Diabetes ([facility] V24, [facility] V28) 02/22/2021 Peripheral arterial disease ([facility] V24) 2020 Overview (01/30/2024): Per [employer] results 05/2020: L>R, awaiting appt to discuss and make recommendations Anxiety 06/16/2020 Degenerative disc disease, lumbar 11/28/2019 Osteoarthritis 11/28/2019 Asthma 11/26/2019 Depression with anxiety 11/26/2019 Hypertension 11/26/2019 MELINDA (obstructive sleep apnea) 11/26/2019 Overview (01/30/2024): [facility] Home Sleep Apnea Test: Date 02/26/2020; [...] LAB CHEMISTRY METHOD 05/21/2024 10:02 AM EST [facility] Triglycerides 171(H) 0 - 150 mg/dL LAB CHEMISTRY METHOD 05/21/2024 10:02 AM [facility] HDL 41 >=40 mg/dL LAB CHEMISTRY METHOD 05/21/2024 10:02 AM [facility] LDL Calculated 132(H) 0 - 100 mg/dL LAB CHEMISTRY METHOD 05/21/2024 10:02 AM EST [facility] VLDL Cholesterol [place] 34.2 mg/dL LAB CHEMISTRY METHOD 05/21/2024 10:02 AM [facility] Non HDL Chol. (LDL+VLDL) 166(H) <145 mg/dL LAB CHEMISTRY METHOD 05/21/2024 10:02 AM [facility] Chol/HDL Ratio 5.0(H) 0.0 - 4.4 LAB CHEMISTRY METHOD 05/21/2024 10:02 AM EST [facility] Blood Venous blood specimen / Unknown Venipuncture / Unknown 05/21/2024 8:49 AM EST 05/21/2024 9:09 AM EST us Katalina Parker MD LAB BLOOD ORDERABLES Final Res ult [facility] [address] [place] [address], * Hemoglobin A1c (05/21/2024 8:49 AM EST) Hemoglobin A1C 6.0 <6.5 % LAB CHEMISTRY METHOD 05/21/2024 1:34 PM [facility] Mean Bld Glu Estim. 126 mg/dL LAB CHEMISTRY METHOD 05/21/2024 1:34 PM [facility] Blood Venous blood specimen / Unknown Venipuncture / Unknown 05/21/2024 8:49 AM EST 05/21/2024 9:10 AM EST us Katalina Parker MD LAB BLOOD ORDERABLES Final Res ult [facility] [address] [place] [address], [place] [phone] * (ABNORMAL) Comprehensive metabolic panel (05/21/2024 8:49 AM EST) [facility] Sodium 139 133 - 145 mmol/L LAB CHEMISTRY METHOD 05/21/2024 10:02 AM [facility] Potassium 4.9 3.5 - 5.5 mmol/L LAB CHEMISTRY METHOD 05/21/2024 10:02 AM [facility] Chloride 107 96 - 110 mmol/L LAB CHEMISTRY METHOD 05/21/2024 10:02 AM [facility] CO2 25 21 - 32 mmol/L LAB CHEMISTRY METHOD 05/21/2024 10:02 AM [facility] Anion Gap 7 3 - 11 LAB CHEMISTRY METHOD 05/21/2024 10:02 AM [facility] Glucose 102(H) 70 - 100 mg/dL LAB CHEMISTRY METHOD 05/21/2024 10:02 AM [facility] BUN 25 5 - 25 mg/dL LAB CHEMISTRY METHOD 05/21/2024 10:02 AM [facility] Creatinine 0.93 0.50 - 1.10 mg/dL LAB CHEMISTRY METHOD 05/21/2024 10:02 AM EST [facility] eGFR 69 >=60 mL/min/1. 73m2 LAB CHEMISTRY METHOD 05/21/2024 10:02 AM [facility] Comment:Calculation based on the Chronic Kidney Disease Epidemiology Collaboration (CKD-EPI) equation refit without adjustment for race. BUN/Creatinine Ratio 26.9 LAB CHEMISTRY METHOD 05/21/2024 10:02 AM [facility] Calcium 9.8 8.5 - 10.5 mg/dL LAB CHEMISTRY METHOD 05/21/2024 10:02 AM [facility] AST (SGOT) 20 10 - 42 unit/L LAB CHEMISTRY METHOD 05/21/2024 10:02 AM [facility] ALT (SGPT) 22 10 - 60 unit/L LAB CHEMISTRY METHOD 05/21/2024 10:02 AM [facility] Alkaline Phosphatase 116 42 - 121 unit/L LAB CHEMISTRY METHOD 05/21/2024 10:02 AM [facility] Total Protein 7.2 6.0 - 8.0 g/dL LAB CHEMISTRY METHOD 05/21/2024 10:02 AM [facility] Albumin 3.7 3.2 - 5.0 g/dL LAB CHEMISTRY METHOD 05/21/2024 10:02 AM [facility] Total Bilirubin 0.4 0.0 - 1.4 mg/dL LAB CHEMISTRY METHOD 05/21/2024 10:02 AM [facility] Blood Venous blood specimen / Unknown Venipuncture / Unknown 05/21/2024 8:49 AM EST 05/21/2024 9:09 AM EST us Katalina Parker MD LAB BLOOD ORDERABLES Final Res ult [facility] [address] [place] [address], * Depression Screening (11/27/2023) [facility] Depression Screening Abstracted Historical Provider HEALTH MAINTENANCE Final Result * Diabetes Eye Exam (09/11/2023) Pathologist [facility] Diabetes: Annual Retina Eye Exam Abstracted Historical Provider HEALTH MAINTENANCE Final Result * Urine Albumin Creatinine Ratio (10/31/2022) Pathologist [facility] Urine Albumin Creatinine Ratio Abstracted Result [facility] Provider HEALTH MAINTENANCE Final Result * Cervical Cancer Screening: HPV (06/21/2020) Pathologist [facility] Cervical Cancer Screening: HPV Negative, Abstracted [facility] Provider HEALTH MAINTENANCE Final Result * Colonoscopy (01/27/2020) Pathologist [facility] Colonoscopy No Interpretation , Abstracted Anatomical Region Laterality Modality Other [facility] Provider HEALTH MAINTENANCE Final Result from Last 3 Months or Most Recently Relevant to Health Maintenance Insurance [employer] Member Subscriber Plan / Payer (Ef fective 2022-Present) Name:Elke Rivers Relation to Subscriber:Self Name:Elke Rivers Payer ID:[id number] Group ID:[id number] Type:Not on file Address: [place] [address] [place] [address] Care Teams Hydroelectric Production Technician Relationship Specialty Start Date End Date Katalina Parker MD [address] [address] PCP - General Internal Medicine 10/06/20
[2024-11-07 07:35] VITALS: BP 128/78; PULSE 67; O2SAT 96; BMI 41.4
--- NOTE | 2024-11-07 07:35 | A.OFFPC_ITS ---
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 today for HDF. She was admitted at [facility] 10/28 for an evaluation and treatment for Strep Pharyngitis. She was treated with Clindamycin and she completed the course. Today reports sore-throat and difficulty to swallow. Denies fevers, chills, nausea or vomiting. [facility] Medical History (Updated 11/07/24 @ 08:12 by Sera Gonzalez NP) Acute pharyngitis Morbid obesity with BMI of 45.0-49.9, adult Mild major depression Surgical History History of hysterectomy Family History Father Multiple myeloma Diabetes mellitus Mother Essential hypertension Alzheimers disease Social History Housing: Apartment Alcohol intake: never Patient Tobacco Use Status: Never used Tobacco Tobacco use type: Cigarette e-Cigarette/Vaping Use: Never Used Second Hand Smoke Exposure: No service: No Current occupational status: disabled Cognitive needs: Yes Hearing needs: No Vision needs: Yes Questionnaire PHQ-9 Over the last 2 weeks, how often have you been bothered by any of the following problems? 1. Little interest or pleasure in doing things: nearly every day 2. Feeling down, depressed, or hopeless: nearly every day 3. Trouble falling or staying asleep, or sleeping too much: nearly every day 4. Feeling tired or having little energy: nearly every day 5. Poor appetite or overeating: more than half the days 6. Feeling bad about yourself - or that you are a failure or have let yourself or your family down: several days 7. Trouble concentrating on things, such as reading the newspaper or watching television: nearly every day 8. Moving or speaking so slowly that other people could have noticed. Or the opposite - being so fidgety or restless that you have been moving around a lot more than usual: not at all 9. Thoughts that you would be better off or of hurting yourself in some way: not at all Total score: 18 Depression Screening Interpretation: Positive (no suicidal thoughts) Depression Screening Follow-up: Existing condition, In treatment, Community Mental Health Worker F/U and Follow-up Visit Requested Depression Screening Done: Yes 96591 - PHQ-9 Billing: Yes Source: Developed by Drs. Kirill Sin, Kristyn Hinton, Renzo Jennings and colleagues, with an educational jasvir from [employer]. Thrive Questionnaire Date Thrive assessed: 10/23/24 I am a: Patient What is your living situation today?: I have a steady place to live Within the past 12 months, did the food you bought not last and you didn't have the money to get more?: Sometimes True Within the past 12 months, did you worry whether your food would run out before you got money to buy more?: Sometimes True Do you have trouble paying for medicines?: No Do you have trouble getting transportation to medical appointments?: No Do you have trouble paying your heating and electricity bill?: No Do you have trouble taking care of your child, family member or friend?: No Do you have trouble with day-to-day activities such as bathing, preparing meals, shopping, managing finances, etc.?: I choose not to answer this question Are you currently unemployed and looking for a job?: No Are you interested in more education?: I choose not to answer this question Please select the resources that you would like help with: Food Currently or been in a relationship where the following occur: I choose not to answer THRIVE Score: 2 AUDIT C Alcohol Use Questionnaire (AUDIT-C) 1. How often do you have a drink containing alcohol?: Never 3. How often do you have six or more drinks on one occasion?: Never Total Score: 0 Score Reviewed/Action Taken: No JOSHUA-7 AMB Questionnaire JOSHUA-7 Date JOSHUA - 7 assessed: 06/05/24 Source: Developed by Drs. Kirill Sin, Kristyn Hinton, Renzo Jennings and colleagues, with an educational jasvir from [employer]. Review of Systems Const All systems reviewed & are unremarkable except as noted in HPI and below Physical exam (Primary Care) Vital Signs: Last Vital Signs Pulse 67 11/07/24 07:35 BP 128/78 11/07/24 07:35 Pulse Ox 96 11/07/24 07:35 Oxygen Delivery Method Room Air 11/07/24 07:35 BMI result Body Mass Index 41.4 Tobacco/Smoking Status: Tobacco use Status Tobacco use date assessed 06/05/24 11/07/24 07:41 Patient Tobacco Use Status Never used Tobacco 11/07/24 07:41 Tobacco use type Cigarette 11/07/24 07:41 e-Cigarette/Vaping Use Never Used 11/07/24 07:41 PHQ-9: PHQ-9 Score PHQ-9: Total score 18 11/07/24 08:12 Depression Screening Interpretation: Positive (no suicidal thoughts) Depression Screening Follow-up: Existing condition, In treatment, Community Mental Health Worker F/U and Follow-up Visit Requested Thrive Assessment: Date of Thrive Assessment Date Thrive assessed 10/23/24 11/07/24 07:41 Currently or been in a relationship where the following occur: I choose not to answer Const General: no acute distress Nutritional Appearance: obese Orientation/consciousness: patient oriented x3 HENMT Head: Yes normocephalic Ears: external ears normal General nose exam: Normal external nose present Face and sinus: Yes sinuses nontender Mouth: moist mucous membranes Throat: Yes uvula midline and Yes abnormal tonsil (Enlarged tonsils +2) Resp Effort & Inspection: normal respiratory effort Auscultation: clear to auscultation bilaterally Cardio Heart sounds: S1 normal heart sound present and S2 normal heart sound present Neuro General: patient oriented x3 Coding Level of Care Code Est Pt Level 4 (66810) Diagnoses Acute streptococcal pharyngitis J02.0 Pharyngitis/tonsillitis etiology: streptococcus Additional Codes PHQ-9 - 94953 - PHQ-9 Billing: Yes ([id number]) Time Spent (min) 20 Assessment & Plan Assessment & Plan (1) Acute pharyngitis: Code(s): J02.9 - Acute pharyngitis, unspecified Category: Medical Qualifiers: Pharyngitis/tonsillitis etiology: streptococcus Qualified Code(s): J02.0 - Streptococcal pharyngitis Plan: Ordered Z-pack for 3 days. Ordered Prednisone OTC Sore throat remedies Acetaminophen for pain relief. Medications: New prednisone 50 mg PO DAILY 5 tabs 0RF 5 days J02.0 - Streptococcal pharyngitis azithromycin 500 mg PO DAILY 3 tabs 0RF 3 days J02.0 - Streptococcal pharyngitis
== END 2024-11-07 08:03 | disposition home or self-care (01) ==
LOC: HO.HMCH 07:30
PROVIDERS: PCP Internal Medicine; Visit Provider Nurse Practitioner Family
DX: J02.0 Streptococcal pharyngitis (principal)

== ENCOUNTER → 2024-11-07 07:29 | Outpatient (BNVA) | payer OTHER, SELFPAY | PROVIDERS: PCP Internal Medicine; Visit Provider Nurse Practitioner Family | DX: J02.0 Streptococcal pharyngitis (principal) | CPT/HCPCS: 96127; 99212 ==

== ENCOUNTER 2024-12-23 09:47 | Outpatient (REF) | payer OTHER, SELFPAY ==
--- NOTE | ~2024-12-23 | MM_ITS ---
EXAMINATION(S): 1. MM DIAGNOSTIC DIGITAL BREAST TOMOSYNTHESIS, BILATERAL 2. Targeted ultrasound of the right breast 3. Targeted ultrasound of the left breast CLINICAL INFORMATION: Bilateral pain. COMPARISON: Prior images from [place] 15 years ago are not retrievable. This is a new baseline study. TECHNIQUE: Digital breast tomosynthesis is performed in along with computer-aided detection (CAD). Synthesized 2D images are generated from the tomosynthesis. FINDINGS: BREAST COMPOSITION: There are scattered areas of fibroglandular density. RIGHT BREAST: -Two adjacent masses in the upper breast at approximately 12 o'clock position at 7.5-5.5 cm from the nipple. Targeted ultrasound was performed at the location of the mammographic finding. The survey shows 2 adjacent solid masses, measuring 1.1 x 0.4 x 0.8 cm and 0.7 x 0.5 x 0.3 cm at 12 o'clock position at 8 cm from the nipple. No abnormal internal vascularity demonstrated with color Doppler evaluation. -No suspicious calcifications or other abnormalities are seen. -Targeted ultrasound of the right breast was performed at the location of the pain as indicated by the patient. The survey throughout the upper outer quadrant did not reveal suspicious sonographic findings. LEFT BREAST: -2 adjacent masses the upper outer quadrant middle depth. Additional asymmetries in the lower breast on the MLO view and in the medial breast on the CC view. Targeted ultrasound was performed at the location of the mammographic findings. The survey throughout the upper outer quadrant and lower inner quadrant did not reveal suspicious sonographic findings. -No suspicious calcifications or other abnormalities are seen. -Targeted ultrasound of the left breast was performed at the location of the pain as indicated by the patient. The survey throughout the upper outer quadrant did not reveal suspicious sonographic findings. MM/MM tomosynthesis diagnostic BI IMPRESSION: RIGHT BREAST: 2 adjacent solid masses at 12 o'clock position at 8 cm from the nipple correlate with the mammographic findings. Probably benign. A 6-month follow-up ultrasound is recommended. LEFT BREAST: Multiple masses/asymmetries without definite suspicious sonographic correlate. Probably benign. A 6-month follow-up left breast mammogram is recommended. ASSESSMENT: BI-RADS: Category 3: Probably benign RECOMMENDATION: 6 Month F/U Results were provided to the patient at time of visit by the technologist. This patient's information was entered into a reminder system with a target due date for their next mammogram. Electronically signed by: Akil Orta MD 12/23/2024 01:28 PM EDT
--- OUTSIDE RECORDS SUMMARY | 2024-12-23 10:37 | XMS_ITS | Clinical Summary ---
Author Organization [address] [facility] Address [address] [place] [address] Phone Care Team Providers Care Medical Technologist Prn Name Role Phone Katalina Parker MD Primary Care Provider [phone] Allergies Active Allergy Reactions Criticality Noted Date [...] by mouth daily for 360 days. 4 Active cholecalciferol (VITAMIN D-3) 25 mcg (1,000 [...] chloride (AYR) 0.65 % nasal drops 1 [place] by Nasal route 4 times daily as [...] Problems Problem Noted Date Diagnosed Date Diabetes ([facility] V24, [facility] V28) 02/22/2021 Peripheral arterial disease ([facility] V24) 2020 Overview (01/30/2024): Per [employer] results 05/2020: L>R, awaiting appt to discuss and make recommendations Anxiety 06/16/2020 Degenerative disc disease, lumbar 11/28/2019 Osteoarthritis 11/28/2019 Asthma 11/26/2019 Depression with anxiety 11/26/2019 Hypertension 11/26/2019 MELINDA (obstructive sleep apnea) 11/26/2019 Overview (01/30/2024): [facility] Home Sleep Apnea Test: Date 02/26/2020; [...] by 2019 home sleep apnea test. Immunizations Immunization Administration Dates Next Due Influenza Quadravalent, MDCK [...] Annual Urine Albumin-Creatinine Ratio (uACR) 11/01/2023 10/31/2022 Depression Screening 03/26/2024 11/27/2023 Falls Risk Assessment 06/16/2024 Diabetes: Annual Retina Eye Exam 09/10/2024 09/11/2023 Diabetes: Blood Sugar Contro l Test (HGBA1C) 11/18/2024 05/21/2024, 06/25/2023 COVID-19 Vaccine (3 - 2024-2 6 season) 2024 12/11/2020, 11/20/2020 Influenza Vaccine (#1) 2024 11/28/2019 Diabetes: Annual [...] mg/dL LAB CHEMISTRY METHOD 05/21/2024 10:02 AM [facility] Triglycerides 171(H) 0 - 150 mg/dL LAB CHEMISTRY METHOD 05/21/2024 10:02 AM [facility] HDL 41 >=40 mg/dL LAB CHEMISTRY METHOD 05/21/2024 10:02 AM [facility] LDL Calculated 132(H) 0 - 100 mg/dL LAB CHEMISTRY METHOD 05/21/2024 10:02 AM [facility] VLDL Cholesterol Gino 34.2 mg/dL LAB CHEMISTRY METHOD 05/21/2024 10:02 AM [facility] Non HDL Chol. (LDL+VLDL) 166(H) <145 mg/dL LAB CHEMISTRY METHOD 05/21/2024 10:02 AM [facility] Chol/HDL Ratio 5.0(H) 0.0 - 4.4 LAB CHEMISTRY METHOD 05/21/2024 10:02 AM [facility] Blood Venous blood specimen / Unknown Venipuncture / Unknown 05/21/2024 8:49 AM EST 05/21/2024 9:09 AM EST us Katalina Parker MD LAB BLOOD ORDERABLES Final Res ult [facility] [address] [place] [address], * Hemoglobin A1c (05/21/2024 8:49 AM EST) Hemoglobin A1C 6.0 <6.5 % LAB CHEMISTRY METHOD 05/21/2024 1:34 PM [facility] Mean Bld Glu Estim. 126 mg/dL LAB CHEMISTRY METHOD 05/21/2024 1:34 PM [facility] Blood Venous blood specimen / Unknown Venipuncture / Unknown 05/21/2024 8:49 AM EST 05/21/2024 9:10 AM EST us Katalina Parker MD LAB BLOOD ORDERABLES Final Res ult [facility] [address] [place] [address], * (ABNORMAL) Comprehensive metabolic panel (05/21/2024 8:49 AM EST) Sodium 139 133 - 145 mmol/L LAB CHEMISTRY METHOD 05/21/2024 10:02 AM [facility] Potassium 4.9 3.5 - 5.5 mmol/L LAB CHEMISTRY METHOD 05/21/2024 10:02 AM [facility] Chloride 107 96 - 110 mmol/L LAB CHEMISTRY METHOD 05/21/2024 10:02 AM [facility] CO2 25 21 - 32 mmol/L LAB CHEMISTRY METHOD 05/21/2024 10:02 AM [facility] Anion Gap 7 3 - 11 LAB CHEMISTRY METHOD 05/21/2024 10:02 AM [facility] Glucose 102(H) 70 - 100 mg/dL LAB CHEMISTRY METHOD 05/21/2024 10:02 AM [facility] BUN 25 5 - 25 mg/dL LAB CHEMISTRY METHOD 05/21/2024 10:02 AM [facility] Creatinine 0.93 0.50 - 1.10 mg/dL LAB CHEMISTRY METHOD 05/21/2024 10:02 AM [facility] eGFR 69 >=60 mL/min/1. 73m2 LAB CHEMISTRY METHOD 05/21/2024 10:02 AM [facility] Comment:Calculation based on the Chronic Kidney Disease Epidemiology Collaboration (CKD-EPI) equation refit without adjustment for race. BUN/Creatinine Ratio 26.9 LAB CHEMISTRY METHOD 05/21/2024 10:02 AM [facility] Calcium 9.8 8.5 - 10.5 mg/dL LAB CHEMISTRY METHOD 05/21/2024 10:02 AM [facility] AST (SGOT) 20 10 - 42 unit/L LAB CHEMISTRY METHOD 05/21/2024 10:02 AM [facility] ALT (SGPT) 22 10 - 60 unit/L LAB CHEMISTRY METHOD 05/21/2024 10:02 AM [facility] Alkaline Phosphatase 116 42 - 121 unit/L LAB CHEMISTRY METHOD 05/21/2024 10:02 AM [facility] Total Protein 7.2 6.0 - 8.0 g/dL LAB CHEMISTRY METHOD 05/21/2024 10:02 AM [facility] Albumin 3.7 3.2 - 5.0 g/dL LAB CHEMISTRY METHOD 05/21/2024 10:02 AM [facility] Total Bilirubin 0.4 0.0 - 1.4 mg/dL LAB CHEMISTRY METHOD 05/21/2024 10:02 AM [facility] Blood Venous blood specimen / Unknown Venipuncture / Unknown 05/21/2024 8:49 AM EST 05/21/2024 9:09 AM EST Katalina Parker MD LAB BLOOD ORDERABLES Final Res ult [facility] [address] [place] [address], * Depression Screening (11/27/2023) Depression Screening Abstracted Historical Provider HEALTH MAINTENANCE Final Result * Diabetes Eye Exam (09/11/2023) Diabetes: Annual Retina Eye Exam Abstracted Historical Provider HEALTH MAINTENANCE Final Result * Urine Albumin Creatinine Ratio (10/31/2022) Pathologist [facility] Urine Albumin Creatinine Ratio Abstracted Historical Provider HEALTH MAINTENANCE Final Result * Cervical Cancer Screening: HPV (06/21/2020) [facility] Cervical Cancer Screening: HPV Negative, Abstracted Historical Provider HEALTH MAINTENANCE Final Result * Colonoscopy (01/27/2020) Pathologist [facility] Colonoscopy No Interpretation , Abstracted Anatomical Region Laterality Modality Other Historical Provider HEALTH MAINTENANCE Final Result from Last 3 Months or Most Recently Relevant to Health Maintenance Insurance [employer] Member Subscriber Plan / Payer (Ef fective 2022-Present) Name:Elke Rivers Relation to Subscriber:Self Name:Elke Rivers Payer ID:[id number] Group ID:[id number] Type:Not on file Address: [place] [address] [place] [address] Care Teams Medical Technologist Prn Relationship Specialty Start Date End Date Katalina Parker MD [address] [id number] PCP - General Internal Medicine 10/06/20
== END 2024-12-23 09:48 | disposition home or self-care (01) ==
LOC: HO.MAMMO 09:47
PROVIDERS: PCP Internal Medicine; Visit Provider Internal Medicine
DX: N64.4 Mastodynia (principal)
CPT/HCPCS: 76642; 77062; 77066

== ENCOUNTER → 2024-12-23 10:30 | Outpatient (BNV) | payer OTHER, SELFPAY | PROVIDERS: PCP Internal Medicine; Visit Provider Radiology Body Imaging | DX: N63.15 Unspecified lump in the right breast, overlapping quadrants (principal); N63.21 Unspecified lump in the left breast, upper outer quadrant | CPT/HCPCS: 76642; 77066; G0279 ==

== ENCOUNTER 2025-01-20 09:05 | Outpatient (REF) | payer OTHER, SELFPAY ==
[2025-01-20 10:03] LABS: Microalbum/Creatinine Ratio Ur 4.7 ug/mg cr (<30)
[2025-01-20 10:19] LABS: Alanine Aminotransferase 23 U/L (0-31); Albumin Level 4.4 g/dL (3.5-5.0); Alkaline Phosphatase 90 U/L (39-117); Anion Gap 11 (12-20); Aspartate Amino Transferase 26 U/L (5-31); Blood Urea Nitrogen 19 mg/dL (9-16); Calcium 9.5 mg/dL (8.4-10.2); Carbon Dioxide 28 mmol/L (22-29); Chloride 107 mmol/L (96-108); Cholesterol 147 mg/dL (<200); Estimated Glomerular Filt Rate > 60; HDL Cholesterol 38 mg/dL (>40); Potassium 4.4 mmol/L (3.3-5.1); Sodium 142 mmol/L (135-145); Total Protein 7.2 g/dL (6.5-8.0); Triglycerides 160 mg/dL (<150)
== END 2025-01-20 09:06 | disposition home or self-care (01) ==
LOC: HO.LAB 09:05
PROVIDERS: PCP Internal Medicine; Visit Provider Internal Medicine
DX: I10 Essential (primary) hypertension (principal); E55.9 Vitamin D deficiency, unspecified; E78.5 Hyperlipidemia, unspecified; E11.9 Type 2 diabetes mellitus without complications; R80.9 Proteinuria, unspecified
CPT/HCPCS: 36415; 80053; 80061; 82043; 82306; 82570

== ENCOUNTER 2025-01-28 15:01 | Outpatient (AMB) | payer OTHER, SELFPAY ==
--- NOTE | 2025-01-28 15:14 | MHC.PC.OV ---
Vital Signs 01/28/25 15:16 Height 5 ft 2 in Weight 230 lb BMI 42.1 BP 130/80 Blood Pressure Location Lt brachial Position Sitting Pulse 71 Pulse Source Pulse Oximeter Temp 96.9 F Temp Source Temporal Artery Scan Pulse Oximetry (%) 98 Oxygen Delivery Method Room Air Intake Visit Reasons: dm Intake Note: Patient is here to follow up on DM. Custodial Laborer Required: Yes Custodial Laborer Language: Georgian Information Interpreted: non-clinical & clinical Lodge Attendant: Present Accompanied by: Son Allergies Penicillins Allergy (Severe, Verified 01/28/25 15:35) rash, eye swelling Medication List - Last Reconciled 01/28/25 by Nena Maher MD amlodipine 10 mg PO DAILY 90 days calcium acetate 667 mg PO BID 90 days cholecalciferol (vitamin D3) 25 mcg PO DAILY 90 days duloxetine 20 mg PO DAILY 90 days duloxetine 30 mg PO DAILY 90 days famotidine 20 mg (2.5 mL) PO BID gabapentin 100 mg PO TID 90 days hydrochlorothiazide 25 mg PO DAILY 90 days hydroxyzine HCl 10 mg PO Q8H 90 days losartan 50 mg PO DAILY 90 days magnesium oxide 400 mg PO DAILY 90 days meclizine 25 mg PO BID 90 days metformin ER 500 mg PO BID 90 days phenol 1.4% (Chloraseptic Throat [place]) 4 sprays mucous membrane Q4H PRN rosuvastatin 10 mg PO DAILY 90 days Tobacco use date assessed: 01/28/25 Fall risk assessment: No Falls in past year Last assessed Fall Risk: 01/28/25 Dental Screening Dental Screen Date: 06/05/24 HPI HPI Comments History of Present Illness Details The patient is a 64-year-old female presenting for management of multiple chronic conditions. She complains of a skin lesion in the left arm that hurts and I will prescribe antibiotics and refer her to Dermatology. She also has obstructive sleep apnea on CPAP and her last sleep study was 2018. She was referred to sleep Medicine but has not received a call yet. She has diabetes mellitus type 2 and her A1c is 5.9% today. Her LDL is very close to goal being 77. Her blood pressure is noted to be within goal at 130/80 mmHg, and her cholesterol is also not considered to be a problem. Her medications for these conditions include hydrochlorothiazide and losartan. The patient has a history of morbid obesity with a BMI of 42. She also takes metformin, and has as-needed meclizine for vertigo. Other medications include famotidine, gabapentin, and magnesium. She reports her stomach hurts excessively, which she attributes to her numerous medications. She has a history of sleep apnea, but follow-up information has not been received. I will add omeprazole. [facility] Medical History (Updated 01/28/25 @ 15:50 by Nena Maher MD) Acute pharyngitis Morbid obesity with BMI of 45.0-49.9, adult Mild major depression Surgical History History of hysterectomy Family History Father Multiple myeloma Diabetes mellitus Mother Essential hypertension Alzheimers disease Social History Housing: Apartment Alcohol intake: never Patient Tobacco Use Status: Never used Tobacco Tobacco use type: Cigarette e-Cigarette/Vaping Use: Never Used Second Hand Smoke Exposure: No service: No Current occupational status: disabled Cognitive needs: Yes (Cane) Hearing needs: No Vision needs: Yes (Glasses) Questionnaire Thrive Questionnaire Date Thrive assessed: 10/23/24 I am a: Patient What is your living situation today?: I have a steady place to live Within the past 12 months, did the food you bought not last and you didn't have the money to get more?: Sometimes True Within the past 12 months, did you worry whether your food would run out before you got money to buy more?: Sometimes True Do you have trouble paying for medicines?: No Do you have trouble getting transportation to medical appointments?: No Do you have trouble paying your heating and electricity bill?: No Do you have trouble taking care of your child, family member or friend?: No Do you have trouble with day-to-day activities such as bathing, preparing meals, shopping, managing finances, etc.?: I choose not to answer this question Are you currently unemployed and looking for a job?: No Are you interested in more education?: I choose not to answer this question Please select the resources that you would like help with: Food Currently or been in a relationship where the following occur: I choose not to answer THRIVE Score: 2 AUDIT C Alcohol Use Questionnaire (AUDIT-C) 1. How often do you have a drink containing alcohol?: Monthly or less 2. How many drinks containing alcohol do you have on a typical day when you are drinking?: 1 or 2 3. How often do you have six or more drinks on one occasion?: Never Total Score: 1 Score Reviewed/Action Taken: No JOSHUA-7 AMB Questionnaire JOSHUA-7 Date JOSHUA - 7 assessed: 06/05/24 Source: Developed by Drs. Kirill Sin, Kristyn Hinton, Renzo Jennings and colleagues, with an educational jasvir from [employer]. Review of Systems Const All systems reviewed & are unremarkable except as noted in HPI and below Card Denies chest pain at rest, Denies chest pain with activity, Denies edema, Denies irregular heart rhythm, Denies claudication, Denies dyspnea, Denies dyspnea on exertion, Denies orthopnea, Denies paroxysmal nocturnal dyspnea and Denies slow heart rate Resp Denies cough, Denies dyspnea and Denies dyspnea on exertion GI Denies abdominal pain, Denies change in bowel habits, Denies excessive flatus, Denies nausea and Denies vomiting Physical exam (Primary Care) Vital Signs: Last Vital Signs Temp 96.9 F 01/28/25 15:16 Pulse 71 01/28/25 15:16 BP 130/80 01/28/25 15:16 Pulse Ox 98 01/28/25 15:16 Oxygen Delivery Method Room Air 01/28/25 15:16 BMI result Body Mass Index 42.1 BMI Assessment/Plan discussion: High BMI High, discussed plan: lifestyle, weight reduction, dietary and physical activity Tobacco/Smoking Status: Tobacco use Status Tobacco use date assessed 01/28/25 01/28/25 15:24 Patient Tobacco Use Status Never used Tobacco 01/28/25 15:14 Tobacco use type Cigarette 01/28/25 15:14 e-Cigarette/Vaping Use Never Used 01/28/25 15:14 Thrive Assessment: Date of Thrive Assessment Date Thrive assessed 10/23/24 01/28/25 15:14 Currently or been in a relationship where the following occur: I choose not to answer Resp Effort & Inspection: normal respiratory effort Auscultation: clear to auscultation bilaterally Cardio Jugular venous distension: no JVD Rate: regular rate Rhythm: regular rhythm Heart sounds: S1 normal heart sound present and S2 normal heart sound present Extrem General: Yes full ROM Results AMB Hemoglobin A1c AMB Hemoglobin A1c 5.9 % Last Edit by XIMENA Velez on 01/28/25 15:27 Results Reviewed Results Reviewed: Laboratory Last Values Hgb A1c (Clinic) 5.9 % (4.0-6.0) 01/28/25 15:15 Coding Level of Care Code Est Pt Level 4 (78536) Complex EM visit Add On G2211 Diagnoses Essential hypertension I10 Hyperlipidemia LDL goal <70 E78.5 Type 2 diabetes mellitus without complication, without long-term current use of insulin E11.9 Diabetes mellitus type: type 2 Diabetes mellitus electrician supervisor substation insulin use: without electrician supervisor substation use Diabetes mellitus complication status: without complication Morbid obesity with BMI of 40.0-44.9, adult E66.01; Z68.41 MELINDA on CPAP G47.33 Skin lesion L98.9 Time Spent (min) 24 Assessment & Plan Assessment & Plan (1) Essential hypertension: Code(s): I10 - Essential (primary) hypertension Category: Medical (2) Hyperlipidemia LDL goal <70: Code(s): E78.5 - Hyperlipidemia, unspecified Category: Medical (3) Diabetes mellitus: Code(s): E11.9 - Type 2 diabetes mellitus without complications Category: Medical Qualifiers: Diabetes mellitus type: type 2 Diabetes mellitus electrician supervisor substation insulin use: without fpc use Diabetes mellitus complication status: without complication Qualified Code(s): E11.9 - Type 2 diabetes mellitus without complications (4) Morbid obesity with BMI of 40.0-44.9, adult: Code(s): E66.01 - Morbid (severe) obesity due to excess calories; Z68.41 - Body mass index [BMI] 40.0-44.9, adult Category: Medical (5) MELINDA on CPAP: Code(s): G47.33 - Obstructive sleep apnea (adult) (pediatric) Category: Medical (6) Skin lesion: Code(s): L98.9 - Disorder of the skin and subcutaneous tissue, unspecified Category: Medical Plan Plan 1. Hypertension The patient's blood pressure is well-controlled at 130/80 mmHg on her current regimen of hydrochlorothiazide and losartan. Medications will be continued as they are working for her. 2. Morbid Obesity The patient has a BMI of 42, which is classified as morbid obesity. It was acknowledged that a strict diet is difficult and can cause hunger initially. 3. Abdominal Pain The patient reports significant stomach pain, which is thought to be a side effect of her polypharmacy. A referral will be placed to Gastroenterology for further evaluation. 4. Unspecified Skin Condition The patient has a couple of things on her skin that warrant specialist evaluation. A referral will be placed to Dermatology. Antibiotics will also be prescribed. 5. Sleep Apnea No reports have been received regarding the patient's sleep apnea. The patient was advised to contact the specialist for a reevaluation. 6. Diabetes mellitus Continue metformin. A1c goal is equal or less than 7%. 7. Hyperlipidemia Continue statins. LDL goal is less than 70. Orders: Orders AMB Hemoglobin A1c Today E11.9 - Type 2 diabetes mellitus without complications Referrals Dermatology Referral L98.9 - Disorder of the skin and subcutaneous tissue, unspecified Sleep Medicine Referral G47.33 - Obstructive sleep apnea (adult) (pediatric) Medications: New pantoprazole 40 mg PO DAILY 90 tabs 1RF 90 days doxycycline hyclate 100 mg PO BID 14 tabs 0RF 7 days
[2025-01-28 15:16] VITALS: BP 130/80; PULSE 71; TEMP 36.1; O2SAT 98; BMI 42.1
--- OUTSIDE RECORDS SUMMARY | 2025-01-28 18:04 | XMS_ITS | Clinical Summary ---
Author Organization 175 [facility] Address [address] [place] [address] Phone Care Team Providers Care Portfolio Assistant Name Role Phone Katalina Parker MD Primary Care Provider [phone] Allergies Active Allergy Reactions Criticality Noted Date [...] chloride (AYR) 0.65 % nasal drops 1 [place] by Nasal route 4 times daily as [...] Problems Problem Noted Date Diagnosed Date Diabetes ([facility] V24, [facility] V28) 02/22/2021 Peripheral arterial disease ([facility] V24) 2020 Overview (01/30/2024): Per QuantFlo results 05/2020: L>R, awaiting appt to discuss and make recommendations Anxiety 06/16/2020 Degenerative disc disease, lumbar 11/28/2019 Osteoarthritis 11/28/2019 Asthma 11/26/2019 Depression with anxiety 11/26/2019 Hypertension 11/26/2019 MELINDA (obstructive sleep apnea) 11/26/2019 Overview (01/30/2024): [facility] Home Sleep Apnea Test: Date [...] Years (1 of 2 - PCV) 06/16/1978 RSV Immunization Adult Patients (1 - Risk 50-74 years 1-dose series) 06/16/2009 Zoster Vaccines (1 of 2) 06/16/2009 Hepatitis C Screening 03/04/2022 Medicare Annual Wellness [...] mg/dL LAB CHEMISTRY METHOD 05/21/2024 10:02 AM [facility] Triglycerides 171(H) 0 - 150 mg/dL LAB CHEMISTRY METHOD 05/21/2024 10:02 AM [facility] HDL 41 >=40 mg/dL LAB CHEMISTRY METHOD 05/21/2024 10:02 AM [facility] LDL Calculated 132(H) 0 - 100 mg/dL LAB CHEMISTRY METHOD 05/21/2024 10:02 AM [facility] VLDL Cholesterol Gino 34.2 mg/dL LAB CHEMISTRY METHOD 05/21/2024 10:02 AM [facility] Non HDL Chol. (LDL+VLDL) 166(H) <145 mg/dL LAB CHEMISTRY METHOD 05/21/2024 10:02 AM [facility] Chol/HDL Ratio 5.0(H) 0.0 - 4.4 LAB CHEMISTRY METHOD 05/21/2024 10:02 AM [facility] Blood Venous blood specimen / Unknown Venipuncture / Unknown 05/21/2024 8:49 AM EST 05/21/2024 9:09 AM EST us Katalina Parker MD LAB BLOOD ORDERABLES Final Res ult [facility] [address] [place] [address], * Hemoglobin A1c (05/21/2024 8:49 AM EST) Hemoglobin A1C 6.0 <6.5 % LAB CHEMISTRY METHOD 05/21/2024 1:34 PM [facility] Mean Bld Glu Estim. 126 mg/dL LAB CHEMISTRY METHOD 05/21/2024 1:34 PM [facility] Blood Venous blood specimen / Unknown Venipuncture / Unknown 05/21/2024 8:49 AM EST 05/21/2024 9:10 AM EST us Katalina Parker MD LAB BLOOD ORDERABLES Final Res ult [facility] [address] [place] [address], * (ABNORMAL) Comprehensive metabolic panel (05/21/2024 8:49 AM EST) Sodium 139 133 - 145 mmol/L LAB CHEMISTRY METHOD 05/21/2024 10:02 AM [facility] Potassium 4.9 3.5 - 5.5 mmol/L LAB CHEMISTRY METHOD 05/21/2024 10:02 AM [facility] Chloride 107 96 - 110 mmol/L LAB CHEMISTRY METHOD 05/21/2024 10:02 AM [facility] CO2 25 21 - 32 mmol/L LAB CHEMISTRY METHOD 05/21/2024 10:02 AM [facility] Anion Gap 7 3 - 11 LAB CHEMISTRY METHOD 05/21/2024 10:02 AM [facility] Glucose 102(H) 70 - 100 mg/dL LAB CHEMISTRY METHOD 05/21/2024 10:02 AM [facility] BUN 25 5 - 25 mg/dL LAB CHEMISTRY METHOD 05/21/2024 10:02 AM [facility] Creatinine 0.93 0.50 - 1.10 mg/dL LAB CHEMISTRY METHOD 05/21/2024 10:02 AM [facility] eGFR 69 >=60 mL/min/1. 73m2 LAB CHEMISTRY METHOD 05/21/2024 10:02 AM [facility] Comment:Calculation based on the Chronic Kidney Disease Epidemiology Collaboration (CKD-EPI) equation refit without adjustment for race. BUN/Creatinine Ratio 26.9 LAB CHEMISTRY METHOD 05/21/2024 10:02 AM [facility] Calcium 9.8 8.5 - 10.5 mg/dL LAB CHEMISTRY METHOD 05/21/2024 10:02 AM [facility] AST (SGOT) 20 10 - 42 unit/L LAB CHEMISTRY METHOD 05/21/2024 10:02 AM [facility] ALT (SGPT) 22 10 - 60 unit/L LAB CHEMISTRY METHOD 05/21/2024 10:02 AM [facility] Alkaline Phosphatase 116 42 - 121 unit/L LAB CHEMISTRY METHOD 05/21/2024 10:02 AM [facility] Total Protein 7.2 6.0 - 8.0 g/dL LAB CHEMISTRY METHOD 05/21/2024 10:02 AM [facility] Albumin 3.7 3.2 - 5.0 g/dL LAB CHEMISTRY METHOD 05/21/2024 10:02 AM [facility] Total Bilirubin 0.4 0.0 - 1.4 mg/dL LAB CHEMISTRY METHOD 05/21/2024 10:02 AM [facility] Blood Venous blood specimen / Unknown Venipuncture / Unknown 05/21/2024 8:49 AM EST 05/21/2024 9:09 AM EST Katalina Parker MD LAB BLOOD ORDERABLES Final Res ult [facility] [address] [place] [address], * Depression Screening (11/27/2023) Depression Screening Abstracted Historical Provider HEALTH MAINTENANCE Final Result * Diabetes Eye Exam (09/11/2023) Diabetes: Annual Retina Eye Exam Abstracted Historical Provider HEALTH MAINTENANCE Final Result * Urine Albumin Creatinine Ratio (10/31/2022) Pathologist [facility] Urine Albumin Creatinine Ratio Abstracted Historical Provider HEALTH MAINTENANCE Final Result * Cervical Cancer Screening: HPV (06/21/2020) [facility] Cervical Cancer Screening: HPV Negative, Abstracted Historical Provider HEALTH MAINTENANCE Final Result * Colonoscopy (01/27/2020) Pathologist [facility] Colonoscopy No Interpretation , Abstracted Anatomical Region Laterality Modality Other Historical Provider HEALTH MAINTENANCE Final Result from Last 3 Months or Most Recently Relevant to Health Maintenance Insurance [employer] MEDICARE Member Subscriber Plan / Payer (Ef fective 2022-Present) Name:Elke Rivers Relation to Subscriber:Self Name:Elke Rivers Payer ID:[id number] Group ID:[id number] Type:Not on file Address: [place] [address] [address] [address] [address] Care Teams Portfolio Assistant Relationship Specialty Start Date End Date Katalina Parker MD [address] [phone] PCP - General Internal Medicine 10/06/20
== END 2025-01-28 15:58 | disposition home or self-care (01) ==
LOC: HO.HMCH 15:02
PROVIDERS: PCP Internal Medicine; Visit Provider Internal Medicine
DX: I10 Essential (primary) hypertension (principal); E11.69 Type 2 diabetes mellitus with other specified complication; E66.01 Morbid (severe) obesity due to excess calories; Z68.41 Body mass index [BMI] 40.0-44.9, adult; E78.5 Hyperlipidemia, unspecified; G47.33 Obstructive sleep apnea (adult) (pediatric); L98.9 Disorder of the skin and subcutaneous tissue, unspecified

== ENCOUNTER → 2025-01-28 15:01 | Outpatient (BNVA) | payer OTHER, SELFPAY | PROVIDERS: PCP Internal Medicine; Visit Provider Internal Medicine | DX: E11.9 Type 2 diabetes mellitus without complications (principal); G47.33 Obstructive sleep apnea (adult) (pediatric); E66.01 Morbid (severe) obesity due to excess calories; I10 Essential (primary) hypertension; E78.5 Hyperlipidemia, unspecified; L98.9 Disorder of the skin and subcutaneous tissue, unspecified; Z68.41 Body mass index [BMI] 40.0-44.9, adult; Z79.84 Long term (current) use of oral hypoglycemic drugs; Z99.89 Dependence on other enabling machines and devices | CPT/HCPCS: 83036; 99212 ==

== ENCOUNTER 2025-02-03 07:57 | Outpatient (AMB) | payer OTHER, SELFPAY ==
--- OUTSIDE RECORDS SUMMARY | 2025-02-03 08:02 | XMS_ITS | Clinical Summary ---
Author Organization 175 [facility] Address [address] [place] [address] Phone Care Team Providers Care Steward/Stewardess Second Class Name Role Phone Katalina Parker MD Primary Care Provider Allergies Active Allergy Reactions Criticality Noted Date [...] chloride (AYR) 0.65 % nasal drops 1 [place] by Nasal route 4 times daily as [...] Problems Problem Noted Date Diagnosed Date Diabetes ([facility] V24, [facility] V28) 02/22/2021 Peripheral arterial disease ([facility] V24) 2020 Overview (01/30/2024): Per QuantFlo results 05/2020: L>R, awaiting appt to discuss and make recommendations Anxiety 06/16/2020 Degenerative disc disease, lumbar 11/28/2019 Osteoarthritis 11/28/2019 Asthma 11/26/2019 Depression with anxiety 11/26/2019 Hypertension 11/26/2019 MELINDA (obstructive sleep apnea) 11/26/2019 Overview (01/30/2024): [facility] Home Sleep Apnea Test: Date [...] mg/dL LAB CHEMISTRY METHOD 05/21/2024 10:02 AM [facility] Triglycerides 171(H) 0 - 150 mg/dL LAB CHEMISTRY METHOD 05/21/2024 10:02 AM [facility] HDL 41 >=40 mg/dL LAB CHEMISTRY METHOD 05/21/2024 10:02 AM [facility] LDL Calculated 132(H) 0 - 100 mg/dL LAB CHEMISTRY METHOD 05/21/2024 10:02 AM [facility] VLDL Cholesterol Gino 34.2 mg/dL LAB CHEMISTRY METHOD 05/21/2024 10:02 AM [facility] Non HDL Chol. (LDL+VLDL) 166(H) <145 mg/dL LAB CHEMISTRY METHOD 05/21/2024 10:02 AM [facility] Chol/HDL Ratio 5.0(H) 0.0 - 4.4 LAB CHEMISTRY METHOD 05/21/2024 10:02 AM [facility] Blood Venous blood specimen / Unknown Venipuncture / Unknown 05/21/2024 8:49 AM EST 05/21/2024 9:09 AM EST us Katalina Parker MD LAB BLOOD ORDERABLES Final Res ult [facility] [address] [place] [address], * Hemoglobin A1c (05/21/2024 8:49 AM EST) Hemoglobin A1C 6.0 <6.5 % LAB CHEMISTRY METHOD 05/21/2024 1:34 PM [facility] Mean Bld Glu Estim. 126 mg/dL LAB CHEMISTRY METHOD 05/21/2024 1:34 PM [facility] Blood Venous blood specimen / Unknown Venipuncture / Unknown 05/21/2024 8:49 AM EST 05/21/2024 9:10 AM EST us Katalina Parker MD LAB BLOOD ORDERABLES Final Res ult [facility] [address] [place] [address], * (ABNORMAL) Comprehensive metabolic panel (05/21/2024 8:49 AM EST) Sodium 139 133 - 145 mmol/L LAB CHEMISTRY METHOD 05/21/2024 10:02 AM [facility] Potassium 4.9 3.5 - 5.5 mmol/L LAB CHEMISTRY METHOD 05/21/2024 10:02 AM [facility] Chloride 107 96 - 110 mmol/L LAB CHEMISTRY METHOD 05/21/2024 10:02 AM [facility] CO2 25 21 - 32 mmol/L LAB CHEMISTRY METHOD 05/21/2024 10:02 AM [facility] Anion Gap 7 3 - 11 LAB CHEMISTRY METHOD 05/21/2024 10:02 AM [facility] Glucose 102(H) 70 - 100 mg/dL LAB CHEMISTRY METHOD 05/21/2024 10:02 AM [facility] BUN 25 5 - 25 mg/dL LAB CHEMISTRY METHOD 05/21/2024 10:02 AM [facility] Creatinine 0.93 0.50 - 1.10 mg/dL LAB CHEMISTRY METHOD 05/21/2024 10:02 AM [facility] eGFR 69 >=60 mL/min/1. 73m2 LAB CHEMISTRY METHOD 05/21/2024 10:02 AM [facility] Comment:Calculation based on the Chronic Kidney Disease Epidemiology Collaboration (CKD-EPI) equation refit without adjustment for race. BUN/Creatinine Ratio 26.9 LAB CHEMISTRY METHOD 05/21/2024 10:02 AM [facility] Calcium 9.8 8.5 - 10.5 mg/dL LAB CHEMISTRY METHOD 05/21/2024 10:02 AM [facility] AST (SGOT) 20 10 - 42 unit/L LAB CHEMISTRY METHOD 05/21/2024 10:02 AM [facility] ALT (SGPT) 22 10 - 60 unit/L LAB CHEMISTRY METHOD 05/21/2024 10:02 AM [facility] Alkaline Phosphatase 116 42 - 121 unit/L LAB CHEMISTRY METHOD 05/21/2024 10:02 AM [facility] Total Protein 7.2 6.0 - 8.0 g/dL LAB CHEMISTRY METHOD 05/21/2024 10:02 AM [facility] Albumin 3.7 3.2 - 5.0 g/dL LAB CHEMISTRY METHOD 05/21/2024 10:02 AM [facility] Total Bilirubin 0.4 0.0 - 1.4 mg/dL LAB CHEMISTRY METHOD 05/21/2024 10:02 AM [facility] Blood Venous blood specimen / Unknown Venipuncture / Unknown 05/21/2024 8:49 AM EST 05/21/2024 9:09 AM EST Katalina Parker MD LAB BLOOD ORDERABLES Final Res ult [facility] [address] [place] [address], * Depression Screening (11/27/2023) Depression Screening Abstracted Historical Provider HEALTH MAINTENANCE Final Result * Diabetes Eye Exam (09/11/2023) Diabetes: Annual Retina Eye Exam Abstracted Historical Provider HEALTH MAINTENANCE Final Result * Urine Albumin Creatinine Ratio (10/31/2022) Pathologist [facility] Urine Albumin Creatinine Ratio Abstracted Historical Provider HEALTH MAINTENANCE Final Result * Cervical Cancer Screening: HPV (06/21/2020) [facility] Cervical Cancer Screening: HPV Negative, Abstracted Historical Provider HEALTH MAINTENANCE Final Result * Colonoscopy (01/27/2020) Pathologist [facility] Colonoscopy No Interpretation , Abstracted Anatomical Region Laterality Modality Other Historical Provider HEALTH MAINTENANCE Final Result from Last 3 Months or Most Recently Relevant to Health Maintenance Insurance [employer] MED[employer] Member Subscriber Plan / Payer (Ef fective 2022-Present) Name:Elke Rivers Relation to Subscriber:Self Name:Elke Rivers Payer ID:[id number] Group ID:[id number] Type:Not on file Address: [place] [address] [address] [address] Care Teams Steward/Stewardess Second Class Relationship Specialty Start Date End Date Katalina Parker MD [address] [phone] PCP - General Internal Medicine 10/06/20
[2025-02-03 08:03] VITALS: BP 130/80; PULSE 72; O2SAT 97; BMI 42.3
--- NOTE | 2025-02-03 08:03 | MHC.OFFVIS ---
Vital Signs 02/03/25 08:03 Height 5 ft 2 in Weight 231 lb 4 oz BMI 42.3 BP 130/80 Blood Pressure Location Rt brachial Position Sitting Pulse 72 Pulse Source Pulse Oximeter Pulse Oximetry (%) 97 Oxygen Delivery Method Room Air Intake Visit Reasons: INP- Sleep Apnea (Conf) Intake Note: Patient presents [employer] [facility]. She also has obstructive sleep apnea on CPAP and her last sleep study was 2019. Currently using CPAP not sure name of DME. No naps. Morning headaches goes away through out the day. Brick Or Block Maker Required: Yes Brick Or Block Maker Services: Brick Or Block Maker Present Brick Or Block Maker Name: [id number] Information Interpreted: non-clinical & clinical Accompanied by: Son Allergies Penicillins Allergy (Severe, Verified 02/03/25 08:10) rash, eye swelling HPI Comments Details: 64 year old female is here for an evaluation for sleep difficulties, she is referred to us by her PCP. 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 She goes to sleep at various times, and wakes up for the bathroom multiple times a night for over 10 years now. She is chronically fatigued.She has headaches in the morning, with cold air, which can last 15min and resolve with breakfast and fluids. She has bruxism and clenches jaws.She feels something is pulling her head backwards and room is spinning while sleeping and awake. While walking she has vertigo, buzzing sound in her left ear, dizziness, gait and balance difficulties. She always uses her cane. She has acid reflux managed on medications. She has restless legs with pins needles, numbness, burning pain, radiating in her feet which keeps her up at night. She denies thrashing, flailing, sleep walking or sleep talking. She has brain fog, is forgetful of many daily tasks, anxious and depression. Diet is okay. She denies smoking and alcohol use. [facility] Medical History Acute pharyngitis Morbid obesity with BMI of 45.0-49.9, adult Mild major depression Surgical History History of hysterectomy Family History Father Multiple myeloma Diabetes mellitus Mother Essential hypertension Alzheimers disease Social History Housing: Apartment Alcohol intake: never Patient Tobacco Use Status: Never used Tobacco Tobacco use type: Cigarette e-Cigarette/Vaping Use: Never Used Second Hand Smoke Exposure: No service: No Current occupational status: disabled Cognitive needs: Yes (Cane) Hearing needs: No Vision needs: Yes (Glasses) Physical Exam Vital Signs: Last Vital Signs Pulse 72 02/03/25 08:03 BP 130/80 02/03/25 08:03 Pulse Ox 97 02/03/25 08:03 Oxygen Delivery Method Room Air 02/03/25 08:03 BMI result Body Mass Index 42.3 Const General: cooperative, comfortable and no acute distress Nutritional Appearance: obese Orientation/consciousness: patient oriented x3 Limitations: language barrier HEENT Face and sinus: Yes face symmetric Teeth and gingiva: other (mallampti score is 3) Eyes Pupils: Equal, round and reactive pupils present Neck Other: limited lateral rotation r>l Resp Effort & Inspection: normal respiratory effort and able to speak in complete sentences Neuro Other: mild oral and facial tremor mild upper extremity tremor l>r ambulates with cane, gait is wide based, difficulty getting out of chair. General: patient oriented x3 and moves all extremities Cranial nerves: Yes Equal, round and reactive pupils present, Yes Normal accommodation reflex present, Yes Normal facial strength present, Yes Ability to bilaterally rotate head present (with limited rom) and Yes Ability to bilaterally elevate shoulders present Cognition (Neuro): normal cognition Gait exam (Neuro): Antalgic gait present, Wide-based gait present and Assistive device used Motor exam (neuro): Abnormal motor strength present and Abnormal muscle tone present Deep tendon reflexes (DTR's): Right triceps reflex intensity grade: 2+, Left triceps reflex intensity grade: 2+, Rt Biceps (C5, C6): 2+, Left biceps reflex intensity grade: 2+, Right brachioradialis reflex intensity grade: 2+, Left brachioradialis reflex intensity grade: 2+, Right patellar reflex intensity grade: 2+ and Left patellar reflex intensity grade: 2+ Psych Appearance: well kempt Speech and movement: Slowed movement present (Neuro) Thought process: Normal thought process present Results Reviewed Results Reviewed: labs reviewed with pt. Assessment & Plan Assessment & Plan (1) Excessive daytime sleepiness: Code(s): G47.19 - Other hypersomnia Category: Medical (2) Chronic fatigue: Code(s): R53.82 - Chronic fatigue, unspecified Category: Medical (3) Vertigo: Code(s): R42 - Dizziness and giddiness Category: Medical (4) Numbness and tingling of both feet: Code(s): R20.0 - Anesthesia of skin; R20.2 - Paresthesia of skin Category: Medical (5) Balance problem due to vestibular dysfunction: Code(s): H83.2X9 - Labyrinthine dysfunction, unspecified ear Category: Medical Qualifiers: Laterality: left Qualified Code(s): H83.2X2 - Labyrinthine dysfunction, left ear (6) Benign paroxysmal positional vertigo due to bilateral vestibular disorder: Code(s): H81.13 - Benign paroxysmal vertigo, bilateral Category: Medical (7) BMI 38.0-38.9,adult: Code(s): Z68.38 - Body mass index [BMI] 38.0-38.9, adult Category: Medical Plan HST r/o melinda PT for evaluation and treatment of vertigo, balance difficulty -BPPV- continue meclizine 25mg po bid. Will investigate Buzzing in ear if vertigo persists, and not resolved with jeremy maneuvers per PT evaluation. NCS/EMG- r/o neuropathy/ peripheral neuropathy, radiculopathy, bilaterally lower extremity. BMI is elevated 42, will refer to weight management. Labs to r/o anemia and deficiencies. 3 months f/u Orders: Orders Ferritin Today R53.82 - Chronic fatigue, unspecified Methylmalonic Acid Today G47.9 - Sleep disorder, unspecified, R53.82 - Chronic fatigue, unspecified, R53.83 - Other fatigue Homocysteine Today G47.9 - Sleep disorder, unspecified, R53.82 - Chronic fatigue, unspecified, R53.83 - Other fatigue Vitamin B12 and Folate Today R53.82 - Chronic fatigue, unspecified TSH reflex Free T4 Today R53.82 - Chronic fatigue, unspecified RT home sleep study Today G47.19 - Other hypersomnia NE nerve conduction velocity Today R20.0 - Anesthesia of skin, R20.2 - Paresthesia of skin NE electromyogram (EMG) Today R20.0 - Anesthesia of skin, R20.2 - Paresthesia of skin PT Evaluation and Treatment Today H81.13 - Benign paroxysmal vertigo, bilateral, H83.2X9 - Labyrinthine dysfunction, unspecified ear Patient Instructions: Please complete the following fasting labs to rule out deficiencies. CBC/CMP/ B12/ Vit D/ TSH/ Homocysteine and MMA/ Ferritin. Sleep Hygiene provided: set a scheduled bedtime and wake time to help regulate the circadian rhythm and balance the release of pituitary hormones. Sleep in a dark room, temperatures below 68 degrees, and no devices n bed. Limit caffeinated products 6 hours prior to bed, and limit fluids 2-4 hours prior to bed. Gentle night yoga, diffusing essential oils, and playing soft music can be relaxing. Monitor BP and blood sugar, will continue to monitor the buzzing in the ears. RLS continue to take magnesium 400mg po daily at night, may hold for loose stools. Coding Level of Care Code New Pt Level 4 (68280) Diagnoses Excessive daytime sleepiness G47.19 Chronic fatigue R53.82 Vertigo R42 Numbness and tingling of both feet R20.0; R20.2 Balance problem due to vestibular dysfunction of left ear H83.2X2 Laterality: left Benign paroxysmal positional vertigo due to bilateral vestibular disorder H81.13 BMI 38.0-38.9,adult Z68.38
== END 2025-02-03 08:57 | disposition home or self-care (01) ==
LOC: HO.HSMS 07:58
PROVIDERS: PCP Internal Medicine; Visit Provider Physician Assistant Medical
DX: G47.19 Other hypersomnia (principal); R53.82 Chronic fatigue, unspecified; R42 Dizziness and giddiness; R20.0 Anesthesia of skin; R20.2 Paresthesia of skin; H83.2X2 Labyrinthine dysfunction, left ear; H81.13 Benign paroxysmal vertigo, bilateral; Z68.38 Body mass index [BMI] 38.0-38.9, adult
CPT/HCPCS: 99204

== ENCOUNTER → 2025-02-03 07:57 | Outpatient (BNVA) | payer OTHER, SELFPAY | PROVIDERS: PCP Internal Medicine; Visit Provider Physician Assistant Medical | DX: H81.13 Benign paroxysmal vertigo, bilateral (principal); G47.19 Other hypersomnia; R53.82 Chronic fatigue, unspecified; R20.0 Anesthesia of skin; R20.2 Paresthesia of skin; H83.2X2 Labyrinthine dysfunction, left ear; Z68.38 Body mass index [BMI] 38.0-38.9, adult | CPT/HCPCS: 99202 ==